=== PATIENT | female | born 1980 | race Caucasian/White ===

== ENCOUNTER 2016-09-17 | Outpatient (CLI) | payer MEDICAID | END 2016-09-17 10:34 | disposition critical access hospital (66) | DX: R68.84 Jaw pain (principal) | CPT/HCPCS: A0425; A0429 ==

== ENCOUNTER 2016-09-17 10:52 | Emergency (ER) | payer MEDICAID ==
[2016-09-17] MEDS ORDERED: PENICILLIN VK 250 MG TABLET PO STA (11:12)
[2016-09-17] MEDS ORDERED: PENICILLIN VK 250 MG TABLET PO ONE (11:27)
== END 2016-09-17 11:45 | disposition home or self-care (01) ==
DX: K04.7 Periapical abscess without sinus (principal); K05.10 Chronic gingivitis, plaque induced; Z87.440 Personal history of urinary (tract) infections; F17.200 Nicotine dependence, unspecified, uncomplicated
CPT/HCPCS: 81025; 99283; A9270

== ENCOUNTER 2017-10-04 13:25 | Emergency (ER) | payer MEDICAID ==
--- NOTE | 2017-10-04 13:54 | ED Physician Documentation ---
PD HPI HEENT - Stated complaint Stated Complaint: MOUTH PX/UNK WKS PREG - Chief complaint Chief Complaint: General - History obtained from History obtained from: Patient - History of Present Illness Timing - onset: How many days ago (several) Timing - duration: Days Timing - details: Gradual onset, Still present Location: Tooth (right lower tooth, with gum swelling.) Worsens: Swalllowing, Other (touching) Associated symptoms: Facial swelling. No: Fever, Swollen nodes, Cough Similar symptoms before: Diagnosis (dental infection same area several months ago, did not see dentist after) Recently seen: Not recently seen Review of Systems Constitutional: denies: Fever, Chills, Myalgias Nose: denies: Rhinorrhea / runny nose, Congestion Throat: denies: Sore throat GI: denies: Abdominal Pain, Nausea, Vomiting, Diarrhea : reports: Now EGA (about 38 weeks by dates, without OB care as yet. LMP January 04 or so.). 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: LEEP (Cervical surgery) - Present Medications Home Medications: Ambulatory Orders Medication Instructions Recorded Confirmed Ibuprofen [Motrin] 800 mg PO Q8H PRN #30 tablet 08/11/14 Cephalexin [Keflex] 500 mg PO QID #24 capsule 10/04/17 - Allergies Allergies/Adverse Reactions: Allergies Allergy/AdvReac Type Severity Reaction Status Date / Time azithromycin [From Zithromax] Allergy Severe Emesis Verified 10/04/17 13:36 - Social History Does the pt smoke?: Yes Smoking Status: Current some day smoker Does the pt drink ETOH?: No Does the pt have substance abuse?: Yes - Immunizations Immunizations are current?: Yes PD ED PE NORMAL - Vitals Vital signs reviewed: Yes - General General: Alert and oriented X 3, No acute distress, Well developed/nourished - HEENT HEENT: Pharynx benign. No: Dentition benign (tenderness right lower gum with focal swelling, but no fluctuance. Bedside U/S did not show significant fluid collection (just 2-3 mm) so no I&D. ) - Neck Neck: Supple, no meningeal sign, No adenopathy - Cardiac Cardiac: RRR, No murmur - Respiratory Respiratory: Clear bilaterally - Abdomen Abdomen: Soft, Non tender, Other (obviously gravid with fundus half way from umbilicus to xyphoid. No abd tenderness. ) - Female Female : Deferred - Rectal Rectal: Deferred - Back Back: No CVA TTP - Derm Derm: Normal color, Warm and dry - Extremities Extremities: No deformity, No tenderness to palpate, No edema - Neuro Neuro: Alert and oriented X 3, No motor deficit, Normal speech Results - Vitals Vitals: Oxygen O2 Source Room air - Labs Labs: Laboratory Tests 10/04/17 10/04/17 10/04/17 14:46 14:46 15:03 WBC RBC Hgb Hct MCV MCH MCHC RDW Plt Count MPV Neut # Lymph # Bacon # Eos # Baso # Absolute Nucleated RBC Nucleated RBC % Manual Slide Review WBC Morphology Platelet Estimate Platelet Morphology RBC Morph Micro Appear Sodium 135 Potassium 3.5 Chloride 105 Carbon Dioxide 21 Anion Gap 9.0 BUN 9 Creatinine 0.5 Estimated GFR (MDRD) 140 Glucose 108 H Calcium 8.2 L Total Bilirubin 0.2 AST 17 ALT 12 Alkaline Phosphatase 424 H Total Protein 6.6 L Albumin 2.8 L Globulin 3.8 Albumin/Globulin Ratio 0.7 L Lipase 24 Urine Color YELLOW Urine Clarity CLEAR Urine pH 6.0 Ur Specific [place] 1.015 Urine Protein NEGATIVE Urine Glucose (UA) NEGATIVE Urine Ketones NEGATIVE Urine Occult Blood NEGATIVE Urine Nitrite NEGATIVE Urine Bilirubin NEGATIVE Urine Urobilinogen 0.2 (NORMAL) Ur Leukocyte Esterase NEGATIVE Ur Microscopic Review NOT INDICATED Urine Culture Comments NOT INDICATED Urine Opiates Screen NEGATIVE Ur Oxycodone Screen NEGATIVE Urine Methadone Screen NEGATIVE Ur Propoxyphene Screen NEGATIVE Ur Barbiturates Screen NEGATIVE Ur Tricyclics Screen NEGATIVE Ur Phencyclidine Scrn NEGATIVE Ur Amphetamine Screen NEGATIVE U Methamphetamines Scrn NEGATIVE U Benzodiazepines Scrn NEGATIVE Urine Cocaine Screen NEGATIVE U Cannabinoids Screen POSITIVE H Hep Bs Antigen HIV 1&2 Ag/Ab, 4th Gen Blood Type Antibody Screen 10/04/17 10/04/17 10/04/17 15:03 15:03 15:03 WBC 21.1 H RBC 3.86 L Hgb 9.9 L Hct 30.4 L MCV 78.7 L MCH 25.5 L MCHC 32.5 RDW 15.5 H Plt Count 346 MPV 8.5 Neut # 15.9 H Lymph # 3.1 Bacon # 1.6 H Eos # 0.4 Baso # 0.1 Absolute Nucleated RBC 0.01 Nucleated RBC % 0.0 Manual Slide Review Indicated WBC Morphology NORMAL APPEARANCE Platelet Estimate NORMAL (130-450,000) Platelet Morphology 1+ GIANT PLATELETS RBC Morph Micro Appear NORMAL APPEARANCE Sodium Potassium Chloride Carbon Dioxide Anion Gap BUN Creatinine Estimated GFR (MDRD) Glucose Calcium Total Bilirubin AST ALT Alkaline Phosphatase Total Protein Albumin Globulin Albumin/Globulin Ratio Lipase Urine Color Urine Clarity Urine pH Ur Specific [place] Urine Protein Urine Glucose (UA) Urine Ketones Urine Occult Blood Urine Nitrite Urine Bilirubin Urine Urobilinogen Ur Leukocyte Esterase Ur Microscopic Review Urine Culture Comments Urine Opiates Screen Ur Oxycodone Screen Urine Methadone Screen Ur Propoxyphene Screen Ur Barbiturates Screen Ur Tricyclics Screen Ur Phencyclidine Scrn Ur Amphetamine Screen U Methamphetamines Scrn U Benzodiazepines Scrn Urine Cocaine Screen U Cannabinoids Screen Hep Bs Antigen NON-REACTIVE HIV 1&2 Ag/Ab, 4th Gen Blood Type O POSITIVE Antibody Screen NEGATIVE 10/04/17 15:03 WBC RBC Hgb Hct MCV MCH MCHC RDW Plt Count MPV Neut # Lymph # Bacon # Eos # Baso # Absolute Nucleated RBC Nucleated RBC % Manual Slide Review WBC Morphology Platelet Estimate Platelet Morphology RBC Morph Micro Appear Sodium Potassium Chloride Carbon Dioxide Anion Gap BUN Creatinine Estimated GFR (MDRD) Glucose Calcium Total Bilirubin AST ALT Alkaline Phosphatase Total Protein Albumin Globulin Albumin/Globulin Ratio Lipase Urine Color Urine Clarity Urine pH Ur Specific [place] Urine Protein Urine Glucose (UA) Urine Ketones Urine Occult Blood Urine Nitrite Urine Bilirubin Urine Urobilinogen Ur Leukocyte Esterase Ur Microscopic Review Urine Culture Comments Urine Opiates Screen Ur Oxycodone Screen Urine Methadone Screen Ur Propoxyphene Screen Ur Barbiturates Screen Ur Tricyclics Screen Ur Phencyclidine Scrn Ur Amphetamine Screen U Methamphetamines Scrn U Benzodiazepines Scrn Urine Cocaine Screen U Cannabinoids Screen Hep Bs Antigen HIV 1&2 Ag/Ab, 4th Gen NON-REACTIVE Blood Type Antibody Screen PD MEDICAL DECISION MAKING - ED course Complexity details: considered differential (Dental infection is now much difficulty. We will get her some antibiotics and some Tylenol. However the concern is she is estimated 38 weeks by dates and has not gotten OB care. She states she did not get any OB care with her prior to her children. She states she has 4 children in different custody is with her father's. She does get to see her 5-year-old now and takes care of a Thursday through Thursday while the father works. She states this has kept her too busy to be able to get an OB appointment. She is interested in getting some labs and ultrasound now. She is pleasant and cooperative but just has not bothered getting care.), d/w patient, d/w parts consultant (Dr. Santillan, and got OB labs to order from him, will also get US.), other (pt to L&D for eval c/w hopsital protocol on patients. ) Departure - Departure Disposition: 01 Home, Self Care Clinical Impression: Dental infection, No care in current in third trimester Qualifiers: Weeks of gestation: 38 weeks Qualified Code(s): Z3A.38 - 38 weeks gestation of Condition: Stable Record reviewed to determine appropriate education?: Yes Instructions: ED Abscess Dental, ED Preg Established Normal Sxs Follow-Up: Bong Santillan MD [Provider Admit Priv/Credential] - Prescriptions: Cephalexin [Keflex] 500 mg PO QID #24 capsule Comments: Tylenol 650 mg every 4-6 hours if needed for pain. No ibuprofen at this point in . Use cephalexin 4 times a day for the dental infection. Go to labor and delivery from here for further evaluation. Discharge Date/Time: 10/04/17 15:49
[2017-10-04] MEDS ORDERED: HYDROcod/ACETAM 5/325 MG TABLET PO STA (14:36)
[2017-10-04] MEDS ORDERED: cephALEXin 250 MG CAPSULE PO STA (14:36)
[2017-10-04 14:58] LABS: BILIRUBIN,URINE NEGATIVE (NEGATIVE); GLUCOSE, URINE (UA) NEGATIVE (NEGATIVE); KETONES,URINE (UA) NEGATIVE (NEGATIVE); LEUKOCYTE ESTERASE, URINE NEGATIVE (NEGATIVE); NITRITE,URINE NEGATIVE (NEGATIVE); OCCULT BLOOD,URINE NEGATIVE (NEGATIVE); PROTEIN,URINE NEGATIVE (NEGATIVE); UROBILINOGEN,URINE 0.2 (NORMAL) E.U./dL (NORMAL)
[2017-10-04 14:59] LABS: MUDS CUTOFF CONCENTRATIONS CUTOFF CONC BELOW:
[2017-10-04 15:00] LABS: CLARITY,URINE CLEAR (CLEAR)
[2017-10-04 15:18] LABS: BASOPHILS # (AUTO) 0.1 10^3/uL (0.0-0.1); BASOPHILS % (AUTO) 0.3 %; EOSINOPHILS # (AUTO) 0.4 10^3/uL (0.0-0.7); EOSINOPHILS % (AUTO) 1.8 %; HGB - HEMOGLOBIN 9.9 g/dL (12.0-16.0); LYMPHOCYTES # (AUTO) 3.1 10^3/uL (1.5-3.5); LYMPHOCYTES % (AUTO) 14.8 %; MEAN CORPUSCULAR HEMOGLOBIN 25.5 pg (27.0-31.0); MEAN CORPUSCULAR HGB CONC 32.5 g/dL (32.0-36.0); MEAN CORPUSCULAR VOLUME 78.7 fL (81.0-99.0); MEAN PLATELET VOLUME 8.5 fL (7.9-10.8); MONOCYTES # (AUTO) 1.6 10^3/uL (0.0-1.0); MONOCYTES % (AUTO) 7.5 %; NEUTROPHILS # (AUTO) 15.9 10^3/uL (1.5-6.6); NEUTROPHILS % (AUTO) 75.6 %; PLT - PLATELET COUNT 346 10^3/uL (130-450); RED BLOOD COUNT 3.86 10^6/uL (4.20-5.40); RED CELL DISTRIBUTION WIDTH 15.5 % (12.0-15.0); WHITE BLOOD COUNT 21.1 x10^3/uL (4.8-10.8)
[2017-10-04 15:22] LABS: AMPHETAMINE SCREEN,URINE NEGATIVE (NEGATIVE); BENZODIAZEPINES SCREEN, URINE NEGATIVE (NEGATIVE); COCAINE SCREEN URINE NEGATIVE (NEGATIVE); METHADONE SCREEN, URINE NEGATIVE (NEGATIVE); METHAMPHETAMINES SCREEN, URINE NEGATIVE (NEGATIVE); OPIATE SCREEN, URINE NEGATIVE (NEGATIVE); OXYCODONE SCREEN, URINE NEGATIVE (NEGATIVE); PROPOXYPHENE SCREEN, URINE NEGATIVE (NEGATIVE); TRICYCLIC ANTIDEPRESSANT,URINE NEGATIVE (NEGATIVE)
[2017-10-04 15:26] LABS: ALBUMIN 2.8 g/dL (3.2-5.5); ALBUMIN/GLOBULIN RATIO 0.7 (1.0-2.2); BILIRUBIN,TOTAL 0.2 mg/dL (0.2-1.0); CALCIUM 8.2 mg/dL (8.5-10.3); CREATININE 0.5 mg/dL (0.4-1.0); TOTAL PROTEIN 6.6 g/dL (6.7-8.2)
[2017-10-04 15:51] VITALS: BP 123/72
--- NOTE | 2017-10-04 17:51 | Ultrasound Report ---
EXAM: LIMITED OBSTETRICAL ULTRASOUND EXAM DATE: 10/04/2017 05:32 PM. CLINICAL HISTORY: Near term , no care. COMPARISON: None. TECHNIQUE: Real-time sonographic evaluation of the fetus performed by the slicing machine tender. Multiple repre sentative static images were saved for review. Additional transvaginal imaging to more accurately eugene luate cervical length/placental position/etc. DATING: Established EGA 38 weeks 5 days with ERICKSON 10/13/2017 by LMP. Established EGA by current ultrasound 37 weeks 3 days with ERICKSON 10/22/2017 GENERAL EVALUATION Sidhu . Cardiac activity: 132 bpm. movement: Visualized. Presentation: Cephalic. Placenta: Anterior without evidence of placenta previa. Amniotic fluid: Normal. STEPHEN 12 cm. MVP 5 cm. ANATOMY BPD 9.4 cm 38 weeks 0 days HC 33.17 m 37 weeks 5 days A. C. 34.4 cm 38 weeks 3 days FL 7.3 cm 37 weeks 3 days Estimated weight 3380 g Cord origin not visualized. Three-vessel cord is present. The following structures are visualized and have a normal appearance: Choroid plexus, lateral ventricles, midline falx, CSP, cisterna magna, cerebellum, nuchal fold, nasal bone, coronal face, nose lips, open hands. Cardiac situs, 4 chamber heart, left and right ventricula r outflow tracts, stomach and situs. Diaphragm, kidneys, bladder, cord insertion. The following structures are not well evaluated due to advanced age: Spine, upper and lower extremities. Leg foot relationships. MATERNAL STRUCTURES Uterus and cervix are not well evaluated. Bilateral adnexa appear unremarkable. IMPRESSION: 1. Sidhu live intrauterine with gestational age 37 weeks 3 days based on current ultras ound. 2. Limited evaluation of anatomy due to advanced age. [facility] Referring Provider Line: [phone] SITE ID: [id number]
[2017-10-04 17:57] LABS: PLATELET ESTIMATE, MANUAL NORMAL (130-450,000) (NORMAL); PLATELET MORPHOLOGY 1+ GIANT PLATELETS (NORMAL)
[2017-10-04 17:58] LABS: RBC MORPHOLOGY (MULTIPLE) NORMAL APPEARANCE (NORMAL)
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
[2017-10-06 08:46] LABS: HEPATITIS B SURFACE ANTIGEN NON-REACTIVE (NON-REACTIVE)
[2017-10-06 13:52] LABS: HIV AG/AB 4TH GEN NON-REACTIVE (NON-REACTIVE)
== END 2017-10-04 15:49 | disposition home or self-care (01) ==
LOC: ED 13:25
DX: O26.893 Other specified pregnancy related conditions, third trimester (principal); K04.7 Periapical abscess without sinus; O09.33 Supervision of pregnancy with insufficient antenatal care, third trimester; O99.333 Smoking (tobacco) complicating pregnancy, third trimester; Z3A.38 38 weeks gestation of pregnancy
CPT/HCPCS: 36415; 76805; 80053; 80306; 81003; 83690; 85025; 86765; 86780; 86850; 86900; 86901; 87340; 87389; 99283; A9270; 81001; 87086

== ENCOUNTER 2017-10-04 15:41 | Outpatient (CLI) | payer MEDICAID ==
[2017-10-04 17:51] VITALS: BP 119/73
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
== END 2017-10-04 18:58 | disposition home or self-care (01) ==
LOC: WFO 15:41 → FBP 15:46 → WFO 18:58
PROVIDERS: ATTEND Obstetrics & Gynecology
DX: O09.33 Supervision of pregnancy with insufficient antenatal care, third trimester (principal); O09.523 Supervision of elderly multigravida, third trimester; O09.73 Supervision of high risk pregnancy due to social problems, third trimester; O99.333 Smoking (tobacco) complicating pregnancy, third trimester; F17.210 Nicotine dependence, cigarettes, uncomplicated; O99.323 Drug use complicating pregnancy, third trimester; F12.90 Cannabis use, unspecified, uncomplicated; O99.613 Diseases of the digestive system complicating pregnancy, third trimester; K02.9 Dental caries, unspecified; O99.013 Anemia complicating pregnancy, third trimester; D64.9 Anemia, unspecified; Z3A.39 39 weeks gestation of pregnancy; Z59.6 Low income
CPT/HCPCS: 59025; 87797; 99212

== ENCOUNTER 2017-10-09 11:42 | Inpatient (IN) | payer MEDICAID ==
[2017-10-09 12:21] LABS: MUDS CUTOFF CONCENTRATIONS CUTOFF CONC BELOW:
[2017-10-09 12:27] LABS: RUPTURE OF MEMBRANES PLUS POSITIVE (NEGATIVE)
[2017-10-09 12:37] LABS: AMPHETAMINE SCREEN,URINE NEGATIVE (NEGATIVE); BENZODIAZEPINES SCREEN, URINE NEGATIVE (NEGATIVE); COCAINE SCREEN URINE NEGATIVE (NEGATIVE); METHADONE SCREEN, URINE NEGATIVE (NEGATIVE); METHAMPHETAMINES SCREEN, URINE NEGATIVE (NEGATIVE); OPIATE SCREEN, URINE NEGATIVE (NEGATIVE); OXYCODONE SCREEN, URINE NEGATIVE (NEGATIVE); PROPOXYPHENE SCREEN, URINE NEGATIVE (NEGATIVE); TRICYCLIC ANTIDEPRESSANT,URINE NEGATIVE (NEGATIVE)
[2017-10-09] MEDS ORDERED: fentaNYL 100 MCG/2 ML VIAL IVP PRN (14:01)
[2017-10-09] MEDS ORDERED: SODIUM CHLORIDE FLUSH 0.9% 10 ML SYRINGE IVP PRN (14:01)
[2017-10-09] MEDS ORDERED: ONDANSETRON 4 MG/2 ML VIAL IVP PRN ×2 (14:01→20:45)
[2017-10-09] MEDS: LACTATED RINGERS 1,000 ML IV SCH ×2 (15:00→19:34)
[2017-10-09 15:30] LABS: BASOPHILS # (AUTO) 0.1 10^3/uL (0.0-0.1); BASOPHILS % (AUTO) 0.3 %; EOSINOPHILS # (AUTO) 0.4 10^3/uL (0.0-0.7); EOSINOPHILS % (AUTO) 2.5 %; HGB - HEMOGLOBIN 10.4 g/dL (12.0-16.0); LYMPHOCYTES # (AUTO) 3.2 10^3/uL (1.5-3.5); LYMPHOCYTES % (AUTO) 18.9 %; MEAN CORPUSCULAR HEMOGLOBIN 25.7 pg (27.0-31.0); MEAN CORPUSCULAR HGB CONC 32.2 g/dL (32.0-36.0); MEAN CORPUSCULAR VOLUME 79.7 fL (81.0-99.0); MEAN PLATELET VOLUME 9.1 fL (7.9-10.8); MONOCYTES % (AUTO) 5.8 %; NEUTROPHILS # (AUTO) 12.3 10^3/uL (1.5-6.6); NEUTROPHILS % (AUTO) 72.5 %; PLT - PLATELET COUNT 365 10^3/uL (130-450); RED BLOOD COUNT 4.04 10^6/uL (4.20-5.40); RED CELL DISTRIBUTION WIDTH 15.9 % (12.0-15.0)
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
[2017-10-09] MEDS ORDERED: SODIUM CHLORIDE FLUSH 0.9% 10 ML SYRINGE IVP SCH (17:00)
[2017-10-09] MEDS ORDERED: ceFAZolin 1 GM in SODIUM CHLORIDE 0.9% MINIBAG 100 ML IV SCH ×2 (17:00→18:00)
[2017-10-09] MEDS ORDERED: OXYTOCIN/SODIUM CHLORIDE 500 ML IV SCH (17:00)
[2017-10-09] MEDS ORDERED: fent/BUPIV 2 MCG/0.125% 250 ML EP ONE (20:23)
[2017-10-09] MEDS ORDERED: NALOXONE 0.4 MG/ML VIAL IVP PRN (20:45)
[2017-10-09] MEDS ORDERED: METOCLOPRAMIDE 10 MG/2 ML VIAL IVP PRN (20:45)
[2017-10-09] MEDS ORDERED: ePHEDrine 50 MG/ML VIAL IVP PRN (20:45)
[2017-10-09] MEDS ORDERED: NALBUPHINE 20 MG/ML AMP IVP PRN (20:45)
[2017-10-09] MEDS ORDERED: diphenhydrAMINE INJ 50 MG/ML VIAL IVP PRN (20:45)
[2017-10-09] MEDS ORDERED: fent/BUPIV 2 MCG/0.125% 250 ML EP PRN (20:46)
[2017-10-09] MEDS ORDERED: LACTATED RINGERS 500 ML IV ONE (20:46)
[2017-10-09] MEDS ORDERED: CARBOPROST TROMETHAMINE 250 MCG/ML AMP IM ONE (23:16)
[2017-10-09] MEDS ORDERED: METHYLERGONOVINE 0.2 MG/ML AMP ONE (23:18)
[2017-10-09] MEDS ORDERED: HYDROCORTISONE/PRAMOXINE 10 GM PR PRN (23:31)
[2017-10-09] MEDS ORDERED: OXYTOCIN/SODIUM CHLORIDE 250 ML IV ONE (23:31)
[2017-10-09] MEDS ORDERED: WITCH HAZEL/GLYCERIN 1 EACH MED..PAD TOP PRN (23:31)
[2017-10-09] MEDS ORDERED: HYDROCORTISONE 1% CREAM 28 GM TUBE PR PRN (23:31)
[2017-10-09] MEDS ORDERED: LACTATED RINGERS 1,000 ML IV SCH (23:45)
--- NOTE | 2017-10-10 00:24 | DELIVERY NOTE ---
Delivery Note - Labor Labor: positive: Induced by oxytocin - Delivery Method Delivery Method: positive: Spontaneous vaginal delivery - Presentation Presentation: positive: Vertex, OA - occiput anterior - Nuchal Cord Nuchal Cord: positive: None - Anesthetic Anesthetic Type: - Amniotic Fluid Description Amniotic Fluid Description: positive: Clear - Episiotomy Type Episiotomy Type: positive: None - Laceration Laceration: positive: None - Delivery Outcome Delivery Outcome: positive: Livebirth (Apgars) - : positive: Placed in direct skin contact with mother, Bulb syringe sex: positive: Female - Cord Cord: positive: 3 vessels - Placenta Placenta: positive: Intact, Spontaneous - Estimated Blood Loss Estimated Blood Loss (in cc): 150 - Post Delivery Events Post Delivery Events: positive: No post delivery events - Delivery Comments (Free Text/Narrative) Delivery Comments (Free Text/Narrative): Baby weigh 7lb 4oz. very short second stage.
[2017-10-10] MEDS: IBUPROFEN 800 MG TABLET PO SCH ×4 (02:04→20:42)
[2017-10-10] MEDS: ACETAMINOPHEN 325 MG TABLET PO PRN ×2 (04:50→09:04)
--- NOTE | 2017-10-10 11:22 | PROVIDER PROGRESS NOTE ---
Subjective - Prog Note Date Prog Note Date: 10/10/17 Prog Note Time: 11:20 - Subjective Pt reports feeling: Improved (Pt voiding notes cramping with breast feeding. bleeding resolving notes paoin 01/03. when questioned states he rpain contron is good. declines narcotics.) Objective - Vital Signs/Intake & Output Reviewed Vital Signs: Yes Vital Signs: Vital Signs x48h Temp Pulse Resp BP Pulse Ox 10/10/17 09:00 36.3 C L 82 18 110/72 100 10/10/17 03:35 37.1 C 85 18 108/64 100 Intake & Output: Intake & Output 10/07/17 10/08/17 10/09/17 10/10/17 23:59 23:59 23:59 23:59 Intake Total 518.323 9872 Output Total 300 750 Balance 398.200 250 - Objective General Appearance: positive: No acute distress, Alert Respiratory: positive: Chest non-tender, No respiratory distress, Breath sounds nml Cardiovascular: positive: Regular rate & rhythm, No murmur, No gallop Abdomen: positive: Non-tender, No organomegaly, Nml bowel sounds, No distention , Mass (U-2). negative: Tenderness Back: positive: CVA tenderness (R), CVA tenderness (L) Extremities: negative: Calf tenderness, Dorothea's sign/cords Neurologic/Psychiatric: positive: Oriented x3 - Lab Results Fish Bones: 10/09/17 15:00 Other Labs: Lab Results x24hrs 10/09/17 10/09/17 10/09/17 Range/Units 15:00 12:10 11:55 WBC 17.0 H (4.8-10.8) x10^3/uL RBC 4.04 L (4.20-5.40) 10^6/uL Hgb 10.4 L (12.0-16.0) g/dL Hct 32.2 L (37.0-47.0) % MCV 79.7 L (81.0-99.0) fL MCH 25.7 L (27.0-31.0) pg MCHC 32.2 (32.0-36.0) g/dL RDW 15.9 H (12.0-15.0) % Plt Count 365 (130-450) 10^3/uL MPV 9.1 (7.9-10.8) fL Neut # 12.3 H (1.5-6.6) 10^3/uL Lymph # 3.2 (1.5-3.5) 10^3/uL [place] # 1.0 (0.0-1.0) 10^3/uL Eos # 0.4 (0.0-0.7) 10^3/uL Baso # 0.1 (0.0-0.1) 10^3/uL Absolute Nucleated RBC 0.00 x10^3/uL Nucleated RBC % 0.0 /100WBC Membranes Rupture POSITIVE A (NEGATIVE) Urine Opiates Screen NEGATIVE (NEGATIVE) Ur Oxycodone Screen NEGATIVE (NEGATIVE) Urine Methadone Screen NEGATIVE (NEGATIVE) Ur Propoxyphene Screen NEGATIVE (NEGATIVE) Ur Barbiturates Screen NEGATIVE (NEGATIVE) Ur Tricyclics Screen NEGATIVE (NEGATIVE) Ur Phencyclidine Scrn NEGATIVE (NEGATIVE) Ur Amphetamine Screen NEGATIVE (NEGATIVE) U Methamphetamines Scrn NEGATIVE (NEGATIVE) U Benzodiazepines Scrn NEGATIVE (NEGATIVE) Urine Cocaine Screen NEGATIVE (NEGATIVE) U Cannabinoids Screen POSITIVE H (NEGATIVE) Assessment/Plan - Problem List (1) (spontaneous vaginal delivery) Impression: Pt is progressing well. Baby is on hold for CPS. Anticipate Discharge in AM
[2017-10-10] MEDS: ACETAMINOPHEN 500 MG TABLET PO PRN (16:15)
[2017-10-10] MEDS: oxyCODONE 5 MG TABLET PO PRN ×2 (16:16→21:45)
[2017-10-10] MEDS ORDERED: DOCUSATE SODIUM 100 MG CAPSULE PO SCH (21:00)
[2017-10-11] MEDS: ACETAMINOPHEN 500 MG TABLET PO PRN ×2 (00:34→08:58)
[2017-10-11] MEDS: IBUPROFEN 800 MG TABLET PO SCH ×2 (02:43→13:34)
--- NOTE | 2017-10-11 07:45 | PROVIDER PROGRESS NOTE ---
Subjective - Prog Note Date Prog Note Date: 10/11/17 Prog Note Time: 07:43 - Subjective Pt reports feeling: Improved (Pain 3/10. pt otes good pain control. Pt desires Tubal ligation. Baby is up for adoption. discussed Post blues/ depression.) Objective - Vital Signs/Intake & Output Reviewed Vital Signs: Yes Vital Signs: Vital Signs x48h Temp Pulse Resp BP Pulse Ox 10/11/17 00:30 36.5 C 81 18 113/66 98 Intake & Output: Intake & Output 10/08/17 10/09/17 10/10/17 10/11/17 23:59 23:59 23:59 23:59 Intake Total 952.156 3072 Output Total 300 750 Balance 398.200 250 - Objective General Appearance: positive: No acute distress, Alert (Pt lust awakened.) Abdomen: positive: Non-tender, Mass (U-2) Extremities: negative: Calf tenderness, Dorothea's sign/cords - Lab Results Fish Bones: 10/09/17 15:00 Assessment/Plan - Problem List (1) (spontaneous vaginal delivery) Impression: Pt is progressing well medically. milk coming in. locia decreasing. Pt desires tubal ligation. Motrin 800 for pain Discharge adn room in.
[2017-10-11] MEDS: NICOTINE 14 MG PATCH TOP SCH ×2 (10:08→13:35)
[2017-10-11 13:16] VITALS: BP 122/69
--- NOTE | 2017-10-11 13:38 | Labor Flowsheet ---
Labor Flowsheet Datetime Report Generated by CPN: 10/11/2017 13:37 Datetime: 10/10/2017 08:22 VITAL SIGNS NBP Sys/Marie/Mean (mmHg): 110 : 72 : 82 Pulse: 82 Datetime: 10/10/2017 03:35 SpO2 (%): 100 Datetime: 10/09/2017 23:25 MEDICATIONS Pitocin (milliunits): Pitocin begun @ 50ml/hr after spont del of placenta Datetime: 10/09/2017 23:24 Stage 2 Comments: Placenta spont expelled Datetime: 10/09/2017 23:15 Stage of : Recovery Datetime: 10/09/2017 23:14 Comments: , female Datetime: 10/09/2017 23:12 STAGE 2 Pushing: Coached on Pushing; Urge to Push Pushing Position: Pushing with Contractions Pushing Progress: Descent with Pushing Datetime: 10/09/2017 23:10 ASSESSMENT A Monitor Mode: External US FHR Baseline Rate : 140 FHR Baseline Changes: No Baseline Change Variability: Moderate 6-25 bpm Accelerations: occas Decelerations: Variable LaborFlag: Labor Datetime: 10/09/2017 23:08 Exam by: Dr Giem Datetime: 10/09/2017 23:05 Actions for Decelerations: Sterile Vaginal Exam Datetime: 10/09/2017 23:03 Provider Reviewed Strip: No COMMUNICATION Communication: Provider at Bedside Provider Notified (Name): Giem Notification Reason: Status Update Communication Comments: Here for delivery Datetime: 10/09/2017 23:00 UTERINE ACTIVITY Monitor Mode: External Monitor Interventions for UA: [place] Adjusted Frequency (min): 2-3 Quality: Moderate Duration (sec): 55-90 Pattern: Normal: <= 5 Contractions in 10 Minutes Resting Tone (Palpate): Relaxed Pitocin Checklist: At Least 1 Acceleration of 15 bpm x 15 Seconds in 30 Minutes or Adequate Variabi lity; No More than 1 Late Deceleration Occurred in Past 30 Minutes; No More than 2 Variable Decelerat ions > 60 Seconds in Duration and decreasing >60 bpm in 30 minutes; No More than 5 Uterine Contractio ns in 10 Minutes for any 20 Minute Interval; Uterus Palpates Soft between Contractions Category: Category II TEACHING Instructional Method: Verbal; Patient Instructed; Verbalized Understanding Plan of Care: Plan of Care Discussed Labor/Induction: Pushing Methods Datetime: 10/09/2017 22:57 I/O Interventions: [place] Discontinued Patient Care Comments: 200ml urine in [place] Datetime: 10/09/2017 22:55 VAGINAL EXAM Dilatation (cm): 8.0 Effacement (%): 100 Station: 0 Datetime: 10/09/2017 22:38 Vaginal Bleeding: None Cervix, Position: Midposition Datetime: 10/09/2017 22:30 Respirations: 18 PAIN Pain Scale: 0 Pain Presence: None/Denies Pain Type: N/A Pain Goal: 4 Pain Relief Measures: Epidural Given Pain Coping: Talking Through Contractions Datetime: 10/09/2017 21:40 ANESTHESIA Anesthesia Plans: Epidural Anesthesia Interview: E Anesthesia Level Check: T6- Xyphoid Datetime: 10/09/2017 21:35 Temperature (C): 37.2 Temperature Route: Oral Datetime: 10/09/2017 21:30 Patient Position/Activity: Left Tilt Datetime: 10/09/2017 21:26 Cervix, Consistency: Moderate Datetime: 10/09/2017 20:47 MATERNAL ASSESSMENT Level of Consciousness: Fully Conscious DTR's/Clonus: DTRs 1+; No Clonus Headache: Denies Breath Sounds, Left: Clear and Equal Breath Sounds, Right: Clear and Equal Nausea/Vomiting: Denies RUQ Epigastric Pain: Denies Maternal Comments: Full ROM prior to epidural Datetime: 10/09/2017 20:10 Pain Location: Abdomen; Left Groin Datetime: 10/09/2017 20:07 Epidural Procedure: Loading Dose Datetime: 10/09/2017 19:50 PATIENT CARE IV/Blood Work: New IV Bag Hung; IV Bag Number @ 2 Datetime: 10/09/2017 19:45 PROCEDURE TIME OUT Procedure Verify: Correct Patient Identity; Correct Side and Site are Marked; Accurate Procedure Co nsent Form; Agreement on Procedure to be Done; Correct Patient Position; Relevant Images and Results are Properly Labeled and Displayed; Safety Precautions Based on Patient History or Medication Use Epidural Positioning: Sitting Anesthesia Comments: Time out, consent signed Datetime: 10/09/2017 19:30 Unit Routine: Unit Personnel; Monitoring; Safety/Fall Risk Prevention; Routine Time Outs; Med ications Pain Management: Epidural; Pain Scale/Goals; Comfort Measures Datetime: 10/09/2017 19:01 Membrane Status: Ruptured Oxygen Method: Room Air Datetime: 10/09/2017 17:30 Comfort Measures: patient napping Datetime: 10/09/2017 14:30 Membranes Ruptured Date/Time: 10/08/2017 14:00 (Annotations: patient thinks she ruptured 10/08/17 ab out 1400) Membranes Rupture Method: Spontaneous Amniotic Fluid Color: Clear Amniotic Fluid Amount: Small Amniotic Fluid Odor: Normal ROM Test Kit: Positive Presentation 'A': Cephalic Medications: Antibiotics; Pitocin PTL/PROM: Expected Outcomes Teaching Comments: patient is aware that due to no care, drug use and past history to expe ct CPS to be involved. Patient states that she expected that. and her plan was to placed baby up for adoption. She has not contacted any adoption agencies.
--- NOTE | 2017-10-12 13:48 | DISCHARGE SUMMARY ---
Physician: Bong Maravilla MD DATE OF ADMISSION: 10/09/2017 DATE OF DISCHARGE: 10/11/2017 PROCEDURES 1. Epidural. 2. Intravenous antibiotics. 3. Assisted vaginal delivery. PRESENTING HISTORY: The patient is a 37-year-old. She is 9, para 4, SAB 2, TAB 2 female, whose last menstrual period was 24 March, giving her EDC of 11 October 2017. This was confirmed with ultrasound on 10/04/2017. The patient presents without any care. She presents with probable rupture of membranes at 1330 the day previous. She did not start contractions until 0430 in the morning of admission. She was admitted and prepared for delivery. LABS: White count showed a hemoglobin 9.9, platelets were 346. Her random blood sugar was 108. The patient had a U-tox, which was positive for cannabinoids. The patient's blood was noted to be O positive, antibody screen negative. HOSPITAL COURSE: The patient was admitted. She was allowed to rest. An epidural was placed for labor analgesia. She was initiated on Pitocin as she was not having regular contractions. The patient reached complete and, following a very short second stage, delivered a live female infant with Apgars 8 and 9, weighing 7 pounds 4 ounces. Her course has been unremarkable. The patient does not at this point have any children at home as they have all been put up for adoption or foster care. CPS has been contacted and are currently probably going to take the baby away. Patient is being discharged to room in, in that the arrangements need be made for at this point. We have discussed the option of tubal ligation, at this point she would like to pursue this. We will obtain paperwork for her to sign, but will have to postpone any tubal ligation until at least 30 days after signature. The patient is being discharged with Motrin for pain control. We will have the patient come back in 1 week at which time we will start contraception until a tubal ligation can be performed. TD: 10/12/2017 07:12
== END 2017-10-11 13:30 | disposition home or self-care (01) | DRG 775 ==
LOC: WFO 11:42 → FBP 11:44 → WFO 14:01 → FBP 14:02
PROVIDERS: ADMIT Obstetrics & Gynecology; ATTEND Obstetrics & Gynecology
PROC: 3E033VJ Introduction of Other Hormone into Peripheral Vein, Percutaneous Approach (ICD-10-PCS; 2017-10-09)
PROC: 10E0XZZ Delivery of Products of Conception, External Approach (ICD-10-PCS; principal; 2017-10-10)
DX: O99.333 Smoking (tobacco) complicating pregnancy, third trimester (principal); Z37.0 Single live birth; F17.200 Nicotine dependence, unspecified, uncomplicated; O99.323 Drug use complicating pregnancy, third trimester; F12.90 Cannabis use, unspecified, uncomplicated; O62.3 Precipitate labor; Z3A.00 Weeks of gestation of pregnancy not specified
CPT/HCPCS: 80306; 84112; 85025; 99213

== ENCOUNTER 2017-10-12 08:57 | Outpatient (CLI) | payer MEDICAID ==
--- NOTE | 2017-10-12 10:26 | Labor Flowsheet ---
Labor Flowsheet Datetime Report Generated by CPN: 10/12/2017 10:26 Datetime: 10/10/2017 08:22 VITAL SIGNS NBP Sys/Marie/Mean (mmHg): 110 : 72 : 82 Pulse: 82 Datetime: 10/10/2017 03:35 SpO2 (%): 100 Datetime: 10/09/2017 23:25 MEDICATIONS Pitocin (milliunits): Pitocin begun @ 50ml/hr after spont del of placenta Datetime: 10/09/2017 23:24 Stage 2 Comments: Placenta spont expelled Datetime: 10/09/2017 23:15 Stage of : Recovery Datetime: 10/09/2017 23:14 Comments: , female Datetime: 10/09/2017 23:12 STAGE 2 Pushing: Coached on Pushing; Urge to Push Pushing Position: Pushing with Contractions Pushing Progress: Descent with Pushing Datetime: 10/09/2017 23:10 ASSESSMENT A Monitor Mode: External US FHR Baseline Rate : 140 FHR Baseline Changes: No Baseline Change Variability: Moderate 6-25 bpm Accelerations: occas Decelerations: Variable LaborFlag: Labor Datetime: 10/09/2017 23:08 Exam by: Dr Giem Datetime: 10/09/2017 23:05 Actions for Decelerations: Sterile Vaginal Exam Datetime: 10/09/2017 23:03 Provider Reviewed Strip: No COMMUNICATION Communication: Provider at Bedside Provider Notified (Name): Giem Notification Reason: Status Update Communication Comments: Here for delivery Datetime: 10/09/2017 23:00 UTERINE ACTIVITY Monitor Mode: External Monitor Interventions for UA: [place] Adjusted Frequency (min): 2-3 Quality: Moderate Duration (sec): 55-90 Pattern: Normal: <= 5 Contractions in 10 Minutes Resting Tone (Palpate): Relaxed Pitocin Checklist: At Least 1 Acceleration of 15 bpm x 15 Seconds in 30 Minutes or Adequate Variabi lity; No More than 1 Late Deceleration Occurred in Past 30 Minutes; No More than 2 Variable Decelerat ions > 60 Seconds in Duration and decreasing >60 bpm in 30 minutes; No More than 5 Uterine Contractio ns in 10 Minutes for any 20 Minute Interval; Uterus Palpates Soft between Contractions Category: Category II TEACHING Instructional Method: Verbal; Patient Instructed; Verbalized Understanding Plan of Care: Plan of Care Discussed Labor/Induction: Pushing Methods Datetime: 10/09/2017 22:57 I/O Interventions: [place] Discontinued Patient Care Comments: 200ml urine in [place] Datetime: 10/09/2017 22:55 VAGINAL EXAM Dilatation (cm): 8.0 Effacement (%): 100 Station: 0 Datetime: 10/09/2017 22:38 Vaginal Bleeding: None Cervix, Position: Midposition Datetime: 10/09/2017 22:30 Respirations: 18 PAIN Pain Scale: 0 Pain Presence: None/Denies Pain Type: N/A Pain Goal: 4 Pain Relief Measures: Epidural Given Pain Coping: Talking Through Contractions Datetime: 10/09/2017 21:40 ANESTHESIA Anesthesia Plans: Epidural Anesthesia Interview: E Anesthesia Level Check: T6- Xyphoid Datetime: 10/09/2017 21:35 Temperature (C): 37.2 Temperature Route: Oral Datetime: 10/09/2017 21:30 Patient Position/Activity: Left Tilt Datetime: 10/09/2017 21:26 Cervix, Consistency: Moderate Datetime: 10/09/2017 20:47 MATERNAL ASSESSMENT Level of Consciousness: Fully Conscious DTR's/Clonus: DTRs 1+; No Clonus Headache: Denies Breath Sounds, Left: Clear and Equal Breath Sounds, Right: Clear and Equal Nausea/Vomiting: Denies RUQ Epigastric Pain: Denies Maternal Comments: Full ROM prior to epidural Datetime: 10/09/2017 20:10 Pain Location: Abdomen; Left Groin Datetime: 10/09/2017 20:07 Epidural Procedure: Loading Dose Datetime: 10/09/2017 19:50 PATIENT CARE IV/Blood Work: New IV Bag Hung; IV Bag Number @ 2 Datetime: 10/09/2017 19:45 PROCEDURE TIME OUT Procedure Verify: Correct Patient Identity; Correct Side and Site are Marked; Accurate Procedure Co nsent Form; Agreement on Procedure to be Done; Correct Patient Position; Relevant Images and Results are Properly Labeled and Displayed; Safety Precautions Based on Patient History or Medication Use Epidural Positioning: Sitting Anesthesia Comments: Time out, consent signed Datetime: 10/09/2017 19:30 Unit Routine: Unit Personnel; Monitoring; Safety/Fall Risk Prevention; Routine Time Outs; Med ications Pain Management: Epidural; Pain Scale/Goals; Comfort Measures Datetime: 10/09/2017 19:01 Membrane Status: Ruptured Oxygen Method: Room Air Datetime: 10/09/2017 17:30 Comfort Measures: patient napping Datetime: 10/09/2017 14:30 Membranes Ruptured Date/Time: 10/08/2017 14:00 (Annotations: patient thinks she ruptured 10/08/17 ab out 1400) Membranes Rupture Method: Spontaneous Amniotic Fluid Color: Clear Amniotic Fluid Amount: Small Amniotic Fluid Odor: Normal ROM Test Kit: Positive Presentation 'A': Cephalic Medications: Antibiotics; Pitocin PTL/PROM: Expected Outcomes Teaching Comments: patient is aware that due to no care, drug use and past history to expe ct CPS to be involved. Patient states that she expected that. and her plan was to placed baby up for adoption. She has not contacted any adoption agencies.
== END 2017-10-12 10:24 | disposition home or self-care (01) ==
LOC: WFO 08:57 → FBP 08:58 → WFO 10:24
PROVIDERS: ATTEND Obstetrics & Gynecology
DX: Z30.013 Encounter for initial prescription of injectable contraceptive (principal)
CPT/HCPCS: 96372; J1050

== ENCOUNTER 2019-01-29 04:26 | Emergency (ER) | payer MEDICAID ==
[2019-01-29 04:31] VITALS: BP 140/88
[2019-01-29] MEDS ORDERED: HYDROcod/ACETAM 5/325 MG TABLET PO STA (04:40)
--- NOTE | 2019-01-29 04:40 | ED Physician Documentation ---
PD HPI HEENT - Stated complaint Stated Complaint: TOOTH PX - Chief complaint Chief Complaint: Heent - History obtained from History obtained from: Patient - History of Present Illness Timing - onset: Enter time (1300), Yesterday Timing - duration: Days (1) Timing - details: Abrupt onset, Still present Location: Tooth Improves: Nothing Worsens: Everything Associated symptoms: Facial swelling Similar symptoms before: Diagnosis (bad tooth) Recently seen: Not recently seen - Additional information Additional information: 38-year old female has had a problem with pain in her left lower jaw for the past 2 weeks. Yesterday at about 1 PM in the afternoon her pain became excruciating and she has swelling of the left side of her face. She comes into the emergency department this morning crying in pain clutching the left side of her face. Review of Systems Constitutional: denies: Fever Eyes: denies: Decreased vision Ears: denies: Ear pain Nose: reports: Congestion Throat: reports: Dental pain / toothache Cardiac: denies: Chest pain / pressure Respiratory: denies: Dyspnea GI: denies: Vomiting PD PAST MEDICAL HISTORY - Past Medical History Cardiovascular: None Respiratory: None Endocrine/Autoimmune: None GI: None PULPER OPERATOR: None : Chronic bladder infection HEENT: None Psych: None Musculoskeletal: None Derm: None - Past Surgical History Past Surgical History: Yes /PULPER OPERATOR: LEEP (Cervical surgery) - Present Medications Home Medications: Ambulatory Orders Medication Instructions Recorded Confirmed Ibuprofen [Motrin] 800 mg PO Q8H PRN #30 tablet 08/11/14 Amoxicillin 875 mg PO BID #14 tablet 01/29/19 Hydrocodone/Acetaminophen 1 - 2 each PO Q6H PRN #14 tablet 01/29/19 [Hydrocodon-Acetaminophen 5-325] - Allergies Allergies/Adverse Reactions: Allergies Allergy/AdvReac Type Severity Reaction Status Date / Time azithromycin [From Zithromax] Allergy Severe Emesis Verified 01/29/19 04:31 - Social History Does the pt smoke?: Yes Smoking Status: Current every day smoker Does the pt drink ETOH?: No Does the pt have substance abuse?: Yes - Immunizations Immunizations are current?: Yes - POLST Patient has POLST: No PD ED PE NORMAL - General General: Alert and oriented X 3, Well developed/nourished, Other (Crying in pain clutching the side of her face) - HEENT HEENT: Atraumatic, PERRL, EOMI, Other (There are 2 lower rear molars that are broken at the base. There is swelling to the gingival mucosa and tenderness. 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 She is administered hydrocodone orally and amoxicillin 750 mg. Departure - Departure Disposition: 01 Home, Self Care Clinical Impression: Dental infection Condition: Stable Instructions: ED Abscess Tooth Follow-Up: [facility] [Provider Group] Prescriptions: Amoxicillin 875 mg PO BID #14 tablet Hydrocodone/Acetaminophen [Hydrocodon-Acetaminophen 5-325] 1 - 2 each PO Q6H PRN #14 tablet PRN Reason: pain
[2019-01-29] MEDS ORDERED: AMOXICILLIN 250 MG CAPSULE PO STA (04:41)
== END 2019-01-29 04:50 | disposition home or self-care (01) ==
LOC: ED 04:26
DX: K04.7 Periapical abscess without sinus (principal); F17.200 Nicotine dependence, unspecified, uncomplicated
CPT/HCPCS: 99283; A9270

== ENCOUNTER 2020-06-01 09:44 | Emergency (ER) | payer MEDICAID ==
--- NOTE | 2020-06-01 10:03 | ED Physician Documentation ---
PD HPI CHEST PAIN - Stated complaint Stated Complaint: CHEST DISCOMFORT - History obtained from History obtained from: Patient - History of Present Illness Timing - onset: How many days ago (2) Timing - onset during: Light activity Timing - duration: Hours (had anterior chest pain lasting just few hours 2 days ago, then resolved and has not returned. Her friend suggested she get checked out, since , and also to initiate care.) Timing - details: Abrupt onset, Now resolved, Waxing and waning Quality: Sharp, Pain Location: Substernal Associated symptoms: No: Shortness of air, Nausea, Feeling faint / dizzy, General Weakness, Palpitations, Cough Similar symptoms before: Has not had sx before Recently seen: Not recently seen (she is estimated 26 weeks and not gotten care yet.) Review of Systems Constitutional: denies: Fever, Chills Nose: denies: Rhinorrhea / runny nose, Congestion Throat: denies: Sore throat Respiratory: denies: Cough GI: denies: Abdominal Pain, Nausea, Vomiting, Diarrhea : reports: Now EGA (26 weeks). 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 : Chronic bladder infection HEENT: None Psych: None Musculoskeletal: None Derm: None - Past Surgical History Past Surgical History: Yes /HOT MIX OPERATOR: LEEP (Cervical surgery) - Present Medications Home Medications: Ambulatory Orders Medication Instructions Recorded Confirmed Ibuprofen [Motrin] 800 mg PO Q8H PRN #30 tablet 08/11/14 Amoxicillin 875 mg PO BID #14 tablet 01/29/19 Hydrocodone/Acetaminophen 1 - 2 each PO Q6H PRN #14 tablet 01/29/19 [Hydrocodon-Acetaminophen 5-325] - Allergies Allergies/Adverse Reactions: Allergies Allergy/AdvReac Type Severity Reaction Status Date / Time azithromycin [From Zithromax] Allergy Severe Emesis Verified 01/29/19 04:31 - Living Situation Living Situation: reports: With family (has 5 children aged 3 to 13.) Living Arrangement: reports: At home - Social History Does the pt smoke?: Yes Smoking Status: Current every day smoker Does the pt drink ETOH?: No Does the pt have substance abuse?: Yes - Family History Family history: denies: Aortic aneursym, Aortic dissection - Immunizations Immunizations are current?: Yes - POLST Patient has POLST: No PD ED PE NORMAL - Vitals Vital signs reviewed: Yes - General General: Alert and oriented X 3, No acute distress, Well developed/nourished - HEENT HEENT: Moist mucous membranes, Pharynx benign - Neck Neck: Supple, no meningeal sign, No adenopathy - Cardiac Cardiac: RRR, No murmur - Respiratory Respiratory: Clear bilaterally - Abdomen Abdomen: Normal bowel sounds, Soft, Non tender, No organomegaly, Other (obviously with fundus above the umbilicus. Bedside U/S showing BPD 26w2d and good movement/FHR. ) - Female Female : Deferred - Rectal Rectal: Deferred - Back Back: No CVA TTP - Derm Derm: Normal color, Warm and dry - Extremities Extremities: No tenderness to palpate, No edema, No calf tenderness / cord - Neuro Neuro: Alert and oriented X 3, No motor deficit, Normal speech Results - Vitals Vitals: Vital Signs - 24 hr 06/01/20 06/01/20 06/01/20 09:50 10:18 10:50 Temperature 36.3 C L Heart Rate 95 95 93 Respiratory 17 16 19 Rate Blood Pressure 122/73 117/67 119/71 O2 Saturation 98 98 99 06/01/20 11:38 Temperature 36.6 C Heart Rate 81 Respiratory 18 Rate Blood Pressure 108/74 O2 Saturation 99 Oxygen O2 Source Room air - EKG (time done) 09:54 Rate: Rate (enter#) (97) Rhythm: NSR [place]: Normal Intervals: Normal [place] QRS: Normal Ischemia: Normal ST segments. No: ST elevation c/w ischemia, ST depression - Labs Labs: Laboratory Tests 06/01/20 06/01/20 06/01/20 11:02 11:02 11:15 WBC 15.7 H RBC 3.51 L Hgb 9.4 L Hct 29.3 L MCV 83.5 MCH 26.8 L MCHC 32.1 RDW 14.9 Plt Count 257 MPV 9.7 Neut # (Auto) 11.4 H Lymph # (Auto) 2.6 [place] # (Auto) 1.0 Eos # (Auto) 0.3 Baso # (Auto) 0.1 Absolute Nucleated RBC 0.00 Nucleated RBC % 0.0 Sodium 136 Potassium 3.8 Chloride 104 Carbon Dioxide 24 Anion Gap 8.0 BUN 9 Creatinine 0.4 Estimated GFR (MDRD) 179 Glucose 107 H Calcium 8.2 L Total Bilirubin 0.4 AST 19 ALT 32 Alkaline Phosphatase 156 H Total Protein 6.0 L Albumin 2.5 L Globulin 3.5 Albumin/Globulin Ratio 0.7 L Urine Color YELLOW Urine Clarity CLEAR Urine pH 7.0 Ur Specific [place] 1.020 Urine Protein NEGATIVE Urine Glucose (UA) NEGATIVE Urine Ketones NEGATIVE Urine Occult Blood NEGATIVE Urine Nitrite NEGATIVE Urine Bilirubin NEGATIVE Urine Urobilinogen 0.2 (NORMAL) Ur Leukocyte Esterase NEGATIVE Ur Microscopic Review NOT INDICATED Urine Culture Comments NOT INDICATED Urine Opiates Screen NEGATIVE Ur Oxycodone Screen NEGATIVE Urine Methadone Screen NEGATIVE Ur Propoxyphene Screen NEGATIVE Ur Barbiturates Screen NEGATIVE Ur Tricyclics Screen NEGATIVE Ur Phencyclidine Scrn NEGATIVE Ur Amphetamine Screen POSITIVE H U Methamphetamines Scrn POSITIVE H U Benzodiazepines Scrn NEGATIVE Urine Cocaine Screen NEGATIVE U Cannabinoids Screen POSITIVE H - Rads (name of study) CXR Radiology: Prelim report reviewed (no acute process), See rad report PD MEDICAL DECISION MAKING - ED course Complexity details: reviewed results (bedside U/S showed good FHR, movement, and BPD showing 26w2d. ), considered differential (brief chest pain 2 days ago, resolved. No symptoms the past day or today. No leg swelling. Vitals are good. Clinically nonsuspicious for DVT. No URI symptoms. CXR is clear. ), d/w patient, d/w sales operations consultant (Dr. Mahoney garage construction equipment mechanic and will see pt in L&D/OB once done in ER. ) Departure - Departure Disposition: 01 Home, Self Care Clinical Impression: Chest pain Qualifiers: Chest pain type: precordial pain Qualified Code(s): R07.2 - Precordial pain Qualifiers: Weeks of gestation: 26 weeks Qualified Code(s): Z3A.26 - 26 weeks gestation of Condition: Stable Record reviewed to determine appropriate education?: Yes Instructions: ED Chest Pain Atypical Unkn Cause Comments: Your EKG and chest x-ray and basic blood tests appear normal. We will have you go down to OB (labor and delivery) to be evaluated on your . I do not see any significant cause for the pain episode you had a couple of days ago. Presume some musculoskeletal pain or such. Tylenol if needed for repeat episodes. Discharge Date/Time: 06/01/20 12:00
--- NOTE | 2020-06-01 11:05 | XRAY Report ---
PROCEDURE: Chest 1 View X-Ray INDICATIONS: chest pain TECHNIQUE: One view of the chest was acquired. COMPARISON: Chest radiograph 07/25/2015. FINDINGS: Surgical changes and devices: None. Lungs and pleura: No pleural effusions or pneumothorax. Lungs are clear. Mediastinum: Mediastinal contours appear normal. Heart size is normal. Bones and chest wall: No suspicious bony lesions. Overlying soft tissues appear unremarkable. IMPRESSION: No acute cardiopulmonary abnormality. Reviewed by: Nicola March MD on 06/01/2020 11:03 AM [facility] Approved by: Nicola March MD on 06/01/2020 11:03 AM [facility] Station ID: [id number]
[2020-06-01 11:07] LABS: BASOPHILS # (AUTO) 0.1 10^3/uL (0.0-0.1); BASOPHILS % (AUTO) 0.5 %; EOSINOPHILS # (AUTO) 0.3 10^3/uL (0.0-0.7); EOSINOPHILS % (AUTO) 2.2 %; HGB - HEMOGLOBIN 9.4 g/dL (12.0-16.0); LYMPHOCYTES # (AUTO) 2.6 10^3/uL (1.5-3.5); LYMPHOCYTES % (AUTO) 16.2 %; MEAN CORPUSCULAR HEMOGLOBIN 26.8 pg (27.0-31.0); MEAN CORPUSCULAR HGB CONC 32.1 g/dL (32.0-36.0); MEAN CORPUSCULAR VOLUME 83.5 fL (81.0-99.0); MEAN PLATELET VOLUME 9.7 fL (7.9-10.8); MONOCYTES % (AUTO) 6.4 %; NEUTROPHILS # (AUTO) 11.4 10^3/uL (1.5-6.6); NEUTROPHILS % (AUTO) 72.7 %; PLT - PLATELET COUNT 257 10^3/uL (130-450); RED BLOOD COUNT 3.51 10^6/uL (4.20-5.40); RED CELL DISTRIBUTION WIDTH 14.9 % (12.0-15.0); WHITE BLOOD COUNT 15.7 x10^3/uL (4.8-10.8)
[2020-06-01 11:20] LABS: ALBUMIN 2.5 g/dL (3.2-5.5); ALBUMIN/GLOBULIN RATIO 0.7 (1.0-2.2); BILIRUBIN,TOTAL 0.4 mg/dL (0.2-1.0); CALCIUM 8.2 mg/dL (8.5-10.3); CREATININE 0.4 mg/dL (0.4-1.0)
[2020-06-01 11:25] LABS: MUDS CUTOFF CONCENTRATIONS CUTOFF CONC BELOW:
[2020-06-01 11:28] LABS: BILIRUBIN,URINE NEGATIVE (NEGATIVE); CLARITY,URINE CLEAR (CLEAR); GLUCOSE, URINE (UA) NEGATIVE (NEGATIVE); KETONES,URINE (UA) NEGATIVE (NEGATIVE); LEUKOCYTE ESTERASE, URINE NEGATIVE (NEGATIVE); NITRITE,URINE NEGATIVE (NEGATIVE); OCCULT BLOOD,URINE NEGATIVE (NEGATIVE); PROTEIN,URINE NEGATIVE (NEGATIVE); UROBILINOGEN,URINE 0.2 (NORMAL) E.U./dL (NORMAL)
[2020-06-01 11:38] VITALS: BP 108/74
[2020-06-01 11:38] LABS: METHAMPHETAMINES SCREEN, URINE POSITIVE (NEGATIVE)
[2020-06-01 11:39] LABS: AMPHETAMINE SCREEN,URINE POSITIVE (NEGATIVE); BENZODIAZEPINES SCREEN, URINE NEGATIVE (NEGATIVE); COCAINE SCREEN URINE NEGATIVE (NEGATIVE); METHADONE SCREEN, URINE NEGATIVE (NEGATIVE); OPIATE SCREEN, URINE NEGATIVE (NEGATIVE); OXYCODONE SCREEN, URINE NEGATIVE (NEGATIVE); PROPOXYPHENE SCREEN, URINE NEGATIVE (NEGATIVE); TRICYCLIC ANTIDEPRESSANT,URINE NEGATIVE (NEGATIVE)
--- NOTE | 2020-06-01 14:16 | PROVIDER PROGRESS NOTE ---
Subjective - Subjective Subjective: Patient seen in the ER for chest pain, was advised to go straight to L&D to initiate care. She did not show up on L&D. I attempted to call her to offer her support and care--phone number on demographics sheet called and "voice mail is not set up". Denzel Objective - Vital Signs/Intake & Output Vital Signs: Vital Signs x48h Temp Pulse Resp BP Pulse Ox 06/01/20 11:38 97.9 F 81 18 108/74 99 06/01/20 10:50 93 19 119/71 99 06/01/20 10:18 95 16 117/67 98 06/01/20 09:50 97.3 F L 95 17 122/73 98 - Lab Results Fish Bones: 06/01/20 11:02 06/01/20 11:02 Other Labs: Lab Results x24hrs 06/01/20 06/01/20 06/01/20 Range/Units 11:15 11:02 11:02 WBC 15.7 H (4.8-10.8) x10^3/uL RBC 3.51 L (4.20-5.40) 10^6/uL Hgb 9.4 L (12.0-16.0) g/dL Hct 29.3 L (37.0-47.0) % MCV 83.5 (81.0-99.0) fL MCH 26.8 L (27.0-31.0) pg MCHC 32.1 (32.0-36.0) g/dL RDW 14.9 (12.0-15.0) % Plt Count 257 (130-450) 10^3/uL MPV 9.7 (7.9-10.8) fL Neut # (Auto) 11.4 H (1.5-6.6) 10^3/uL Lymph # (Auto) 2.6 (1.5-3.5) 10^3/uL [place] # (Auto) 1.0 (0.0-1.0) 10^3/uL Eos # (Auto) 0.3 (0.0-0.7) 10^3/uL Baso # (Auto) 0.1 (0.0-0.1) 10^3/uL Absolute Nucleated RBC 0.00 x10^3/uL Nucleated RBC % 0.0 /100WBC Sodium 136 (135-145) mmol/L Potassium 3.8 (3.5-5.0) mmol/L Chloride 104 (101-111) mmol/L Carbon Dioxide 24 (21-32) mmol/L Anion Gap 8.0 (6-13) BUN 9 (6-20) mg/dL Creatinine 0.4 (0.4-1.0) mg/dL Estimated GFR (MDRD) 179 (>89) Glucose 107 H (70-100) mg/dL Calcium 8.2 L (8.5-10.3) mg/dL Total Bilirubin 0.4 (0.2-1.0) mg/dL AST 19 (10-42) IU/L ALT 32 (10-60) IU/L Alkaline Phosphatase 156 H (42-121) IU/L Total Protein 6.0 L (6.7-8.2) g/dL Albumin 2.5 L (3.2-5.5) g/dL Globulin 3.5 (2.1-4.2) g/dL Albumin/Globulin Ratio 0.7 L (1.0-2.2) Urine Color YELLOW Urine Clarity CLEAR (CLEAR) Urine pH 7.0 (5.0-7.5) PH Ur Specific [place] 1.020 (1.002-1.030) Urine Protein NEGATIVE (NEGATIVE) mg/dL Urine Glucose (UA) NEGATIVE (NEGATIVE) mg/dL Urine Ketones NEGATIVE (NEGATIVE) mg/dL Urine Occult Blood NEGATIVE (NEGATIVE) Urine Nitrite NEGATIVE (NEGATIVE) Urine Bilirubin NEGATIVE (NEGATIVE) Urine Urobilinogen 0.2 (NORMAL) (NORMAL) E.U./dL Ur Leukocyte Esterase NEGATIVE (NEGATIVE) Ur Microscopic Review NOT INDICATED Urine Culture Comments NOT INDICATED Urine Opiates Screen NEGATIVE (NEGATIVE) Ur Oxycodone Screen NEGATIVE (NEGATIVE) Urine Methadone Screen NEGATIVE (NEGATIVE) Ur Propoxyphene Screen NEGATIVE (NEGATIVE) Ur Barbiturates Screen NEGATIVE (NEGATIVE) Ur Tricyclics Screen NEGATIVE (NEGATIVE) Ur Phencyclidine Scrn NEGATIVE (NEGATIVE) Ur Amphetamine Screen POSITIVE H (NEGATIVE) U Methamphetamines Scrn POSITIVE H (NEGATIVE) U Benzodiazepines Scrn NEGATIVE (NEGATIVE) Urine Cocaine Screen NEGATIVE (NEGATIVE) U Cannabinoids Screen POSITIVE H (NEGATIVE)
== END 2020-06-01 12:00 | disposition home or self-care (01) ==
LOC: ED 09:44
DX: O99.891 Other specified diseases and conditions complicating pregnancy (principal); R07.2 Precordial pain; O99.332 Smoking (tobacco) complicating pregnancy, second trimester; F17.200 Nicotine dependence, unspecified, uncomplicated; Z3A.26 26 weeks gestation of pregnancy
CPT/HCPCS: 36415; 71045; 80053; 80306; 81001; 81003; 85025; 87086; 93005; 99284

== ENCOUNTER 2020-08-06 20:12 | Outpatient (CLI) | payer MEDICAID | END 2020-08-06 20:13 | disposition critical access hospital (66) | LOC: EMS 20:12 | PROVIDERS: ATTEND Surgery | DX: O99.891 Other specified diseases and conditions complicating pregnancy (principal); Z59.0 Homelessness | CPT/HCPCS: A0425; A0429; A0999 ==

== ENCOUNTER 2020-08-06 20:38 | Inpatient (IN) | payer MEDICAID ==
[2020-08-06] MEDS ORDERED: LACTATED RINGERS 1,000 ML IV ONE ×2 (21:33→23:54)
[2020-08-06] MEDS ORDERED: FLU VACC QS2020-21(6MOS UP)/PF 60 MCG/0.5 ML SYRINGE IM ONE (21:48)
[2020-08-06] MEDS ORDERED: TETANUS/DIPHTHERIA/PERTUSSIS 0.5 ML SYRINGE IM ONE (21:48)
[2020-08-06] MEDS ORDERED: ceFAZolin 2 GM/50 ML 2 GM/50 ML BAG IV ONE (22:10)
[2020-08-06 22:15] LABS: BASOPHILS % (AUTO) 0.6 %; EOSINOPHILS % (AUTO) 1.3 %; HGB - HEMOGLOBIN 8.7 g/dL (12.0-16.0); LYMPHOCYTES % (AUTO) 18.1 %; MEAN CORPUSCULAR HEMOGLOBIN 24.7 pg (27.0-31.0); MEAN CORPUSCULAR HGB CONC 31.4 g/dL (32.0-36.0); MEAN CORPUSCULAR VOLUME 78.7 fL (81.0-99.0); MEAN PLATELET VOLUME 10.5 fL (7.9-10.8); NEUTROPHILS % (AUTO) 69.9 %; PLT - PLATELET COUNT 238 10^3/uL (130-450); RED BLOOD COUNT 3.52 10^6/uL (4.20-5.40); RED CELL DISTRIBUTION WIDTH 17.3 % (12.0-15.0); WHITE BLOOD COUNT 23.6 x10^3/uL (4.8-10.8)
[2020-08-06] MEDS ORDERED: AMPICILLIN 2 GM in SODIUM CHLORIDE 0.9% MINIBAG 100 ML IV SCH (22:15)
--- NOTE | 2020-08-06 22:15 | ANESTHESIA ---
Pre-Anesthesia VS, & Labs - Diagnosis Active labor, transverse twins - Procedure primary c/s Vital Signs: Temp Pulse Resp BP Pulse Ox 37 C 119 H 16 118/74 99 08/06/20 21:04 08/06/20 21:04 08/06/20 21:04 08/06/20 21:04 08/06/20 21:04 Height: 5 ft 3 in Weight (kg): 102.058 kg Body Mass Index: 39.8 BMI Classification: Obese - NPO Last Food Intake: 1999 - Is Patient ?: Yes Home Medications and Allergies Active Medications Ampicillin Sodium 2 gm/ Sodium (Chloride) 100 mls @ 100 mls/hr IV Q6HR OSMAR Ampicillin Sodium 1 gm/ Sodium (Chloride) 100 mls @ 200 mls/hr IV Q4H OSMAR Cefazolin Sodium/Dextrose (Ancef 2 Gm/50 Ml) 2 gm in 50 mls @ 100 mls/hr IV ONCE ONE Stop: 08/06/20 22:39 pNV Allergies/Adverse Reactions: Allergies Allergy/AdvReac Type Severity Reaction Status Date / Time azithromycin [From Zithromax] Allergy Severe Emesis Verified 01/29/19 04:31 Anes History & Medical History - Anesthetic History Anesthesia Complications: reports: No previous complications - Medical History Cardiovascular: reports: None Pulmonary: reports: None Gastrointestinal: reports: None Urinary: reports: Chronic bladder infection Neuro: reports: None Musculoskeletal: reports: None Endocrine/Autoimmune: reports: None Blood Disorders: reports: None Skin: reports: None Smoking Status: Current every day smoker Psychosocial: reports: Amphetamine (Last use on Thursday), Cannabis (daily) History of Cancer?: No - Surgical History Gynecologic: LEEP (Cervical surgery) - Obstetrical History : 6 Parity: 5 Events: positive: No care Complications: positive: Maternal drug use Exam General: Alert, Oriented x3, Severe distress Dental: Poor dentition Mouth Openin Fingerbreadth Neck Mobility: Normal Mallampati classification: III Thyromental Distance: 4-6 cm Mental/Cognitive Status: Alert/Oriented X3, Normal for patient Plan Anesthesia Type: Spinal Consent for Procedure(s) Verified and Reviewed: Yes Code Status: Attempt Resuscitation ASA classification: 3-Severe systemic disease Is this case an emergency?: No
--- NOTE | 2020-08-06 22:19 | HISTORY & PHYSICAL EXAMINATION ---
HPI - History of Present Illness HPI Comment/Other: CC: labor HPI: labor started this afternoon, worsening with time, lots of back pain, feels like real labor. No LOF. No VB. +FM. OB: no care. LMP 12/01/19 [place] 09/06/20 35w4d PMH: polysubstance PSH: neg Allergies: azithromycin --> nausea Meds: none SH: daily THC, daily tobacco 2 cigs. 2x per week meth use. FH: no anesthesia problems ROS: no fevers or cough. Tooth pain. PMH/PSH - Past Medical History Cardiovascular: positive: None Respiratory: positive: None Endocrine/Autoimmune: positive: None GI: positive: None LEARNING AND DEVELOPMENT INTERN: positive: None : positive: Chronic bladder infection HEENT: positive: None Psych: positive: None Musculoskeletal: positive: None Derm: positive: None MRSA Hx?: No - Past Surgical History /LEARNING AND DEVELOPMENT INTERN: positive: LEEP (Cervical surgery) Social & Family Hx - Social History Does the pt smoke?: Yes Smoking Status: Current every day smoker Does the pt drink ETOH?: No Does the pt have substance abuse?: Yes - POLST Patient has POLST: No Meds/Allgy - Home Medications Home Medications: Ambulatory Orders Medication Instructions Recorded Confirmed Ibuprofen [Motrin] 800 mg PO Q8H PRN #30 tablet 08/11/14 Amoxicillin 875 mg PO BID #14 tablet 01/29/19 Hydrocodone/Acetaminophen 1 - 2 each PO Q6H PRN #14 tablet 01/29/19 [Hydrocodon-Acetaminophen 5-325] - Allergies Allergies/Adverse Reactions: Allergies Allergy/AdvReac Type Severity Reaction Status Date / Time azithromycin [From Zithromax] Allergy Severe Emesis Verified 01/29/19 04:31 Exam - Vital Signs Reviewed Vital Signs: Yes Vital Signs: Vital Signs x48h Temp Pulse Resp BP Pulse Ox 08/06/20 21:04 98.6 F 119 H 16 118/74 99 - Physical Exam Comments/Other: Writhing in pain, holding mouth Abd soft, distended SVE 1.5cm with RN -->3cm with me [place] hard to trace Femur length 33w4d Twins, A breech, B transverse, both living Impression/Plan - Problem List Problem List: 40yo at 35w4d by certain, regular LMP c/w 33w4d femur length here, with active spontaneous labor and twin . No care. --To OR for delivery A is breech --Ancef --NOB labs --Type and cross; hemorrhage meds in room --Social work consult --Will need abx for likely tooth abscess.
[2020-08-06 22:24] LABS: ABNORMAL LYMPHS % (MANUAL) 0 %
[2020-08-06 22:28] LABS: ALBUMIN 2.4 g/dL (3.2-5.5); ALBUMIN/GLOBULIN RATIO 0.7 (1.0-2.2); BILIRUBIN,TOTAL 0.3 mg/dL (0.2-1.0); CALCIUM 8.4 mg/dL (8.5-10.3); CREATININE 0.7 mg/dL (0.4-1.0); TOTAL PROTEIN 5.8 g/dL (6.7-8.2)
[2020-08-06] MEDS ORDERED: FAMOTIDINE 20 MG/2 ML VIAL IVP STA (22:28)
[2020-08-06] MEDS ORDERED: CITRIC ACID/SODIUM CITRATE 15 ML UDC PO STA (22:29)
[2020-08-06] MEDS ORDERED: METOCLOPRAMIDE 10 MG/2 ML VIAL IVP STA (22:29)
[2020-08-06] MEDS ORDERED: CARBOPROST TROMETHAMINE 250 MCG/ML AMP IM ONE (22:39)
[2020-08-06] MEDS ORDERED: TRANEXAMIC ACID 1,000 MG/10 ML VIAL ONE (22:40)
[2020-08-06] MEDS ORDERED: MORPHINE PF 5 MG/10 ML VIAL ONE (22:41)
[2020-08-06] MEDS ORDERED: fentaNYL 100 MCG/2 ML VIAL ONE (22:41)
[2020-08-06] MEDS ORDERED: PHENYLEPHRINE 10 MG/ML VIAL ONE (22:42)
[2020-08-06] MEDS ORDERED: OXYTOCIN 10 UNIT/ML VIAL ONE (22:42)
[2020-08-06] MEDS ORDERED: METOCLOPRAMIDE 10 MG/2 ML VIAL ONE (22:46)
[2020-08-06] MEDS ORDERED: fentaNYL 100 MCG/2 ML VIAL IT ONE (22:49)
[2020-08-06] MEDS ORDERED: MORPHINE PF 5 MG/10 ML VIAL IT ONE (22:49)
[2020-08-06 22:56] LABS: BAND NEUTROPHILS % (MANUAL) 2 %; EOSINOPHILS # (MANUAL) 0.5 10^3/uL (0-0.7); LYMPHOCYTES # (MANUAL) 2.1 10^3/uL (1.5-3.5); LYMPHOCYTES % (MANUAL) 8 %; MONOCYTES # (MANUAL) 2.8 10^3/uL (0.0-1.0)
[2020-08-06 22:58] LABS: DIFFERENTIAL COMMENT MANUAL DIFFERENTIAL; PLATELET ESTIMATE, MANUAL NORMAL (130-450,000) (NORMAL); PLATELET MORPHOLOGY NORMAL APPEARANCE (NORMAL)
[2020-08-06] MEDS ORDERED: SODIUM CHLORIDE 0.9% 1,000 ML IV SCH (23:00)
[2020-08-06] MEDS ORDERED: MORPHINE 2 MG/ML CARPUJECT IVP PRN (23:13)
[2020-08-06] MEDS ORDERED: HYDROmorphone 0.5 MG/0.5 ML SYRINGE IVP PRN (23:13)
[2020-08-06] MEDS ORDERED: ONDANSETRON 4 MG/2 ML VIAL IVP PRN ×2 (23:13)
[2020-08-06] MEDS ORDERED: NALBUPHINE 10 MG/ML AMP IVP PRN (23:13)
[2020-08-06] MEDS ORDERED: ATROPINE ABBOJECT 1 MG/10 ML SYRINGE IVP PRN (23:13)
[2020-08-06] MEDS ORDERED: NALOXONE 0.4 MG/ML VIAL IVP PRN ×2 (23:13)
[2020-08-06] MEDS ORDERED: fentaNYL 100 MCG/2 ML VIAL IVP PRN (23:13)
[2020-08-06] MEDS ORDERED: KETOROLAC 30 MG/ML VIAL ONE (23:40)
[2020-08-06 23:43] LABS: MUDS CUTOFF CONCENTRATIONS CUTOFF CONC BELOW:
[2020-08-06] MEDS ORDERED: LACTATED RINGERS 1,000 ML IV SCH (23:45)
--- NOTE | 2020-08-07 00:01 | ANESTHESIA POST OP EVALUATION ---
Anesthesia Post Eval - Post Anesthesia Eval Vitals: Last Vital Signs Temp 36.6 C 08/06/20 23:55 Pulse 90 08/06/20 23:55 Resp 16 08/06/20 23:55 BP 111/67 08/06/20 23:55 Pulse Ox 100 08/06/20 23:55 CV Function Including HR & BP: positive: Stable Pain Control: positive: Satisfactory Nausea & Vomiting: positive: Negative Mental Status: positive: Baseline Respiratory Status: Airway Patent Hydration Status: Satisfactory Anesthesia Complications: positive: None
--- NOTE | 2020-08-07 00:05 | OPERATIVE REPORT ---
Operative Report - General Admit Date: 08/06/20 Procedure Performed: Date of surgery 08/07/20 Preoperative diagnosis: labor at 35w, twin gestation, breech/transverse presentation Postoperative diagnosis: same and placental abruption for twin A Procedure: Primary Surgeon: Denzel Emt P: Larry BOWER Anesthesia: spinal Estimated Blood Loss: 600cc IV Fluids: 900cc Urine output: 60cc Counts: correct sponge and instrument Complications: none apparent Disposition: stable to recovery room Prophylaxis: SCD to bilateral lower extremities, Ancef 2g IV Specimens: to pathology placenta, to lab cord blood Findings: Normal uterus, ovaries, fallopian tubes. A was complete breech, red amniotic fluid containing copious clot, apgars 8/8. B was double footling breech, clear fluid, apgars 5/8.
[2020-08-07] MEDS ORDERED: MAGNESIUM HYDROXIDE 2,400 MG/30 ML UDC PO PRN (00:07)
[2020-08-07] MEDS ORDERED: METHYLERGONOVINE 0.2 MG/ML VIAL IM PRN (00:07)
[2020-08-07] MEDS ORDERED: OXYTOCIN/SODIUM CHLORIDE 500 ML IV PRN (00:07)
[2020-08-07] MEDS ORDERED: HYDROCORTISONE 1% CREAM 28 GM TUBE PR PRN (00:07)
[2020-08-07] MEDS ORDERED: SODIUM CHLORIDE FLUSH 0.9% 10 ML SYRINGE IVP PRN (00:07)
[2020-08-07] MEDS ORDERED: SIMETHICONE CHEW 80 MG TABLET PO PRN (00:07)
[2020-08-07] MEDS ORDERED: WITCH HAZEL/GLYCERIN 1 PAD TOP PRN (00:07)
[2020-08-07] MEDS ORDERED: ONDANSETRON ODT 4 MG TABLET TL PRN (00:07)
[2020-08-07] MEDS ORDERED: CARBOPROST TROMETHAMINE 250 MCG/ML AMP IM ONE (00:07)
[2020-08-07 00:08] LABS: AMPHETAMINE SCREEN,URINE POSITIVE (NEGATIVE); BENZODIAZEPINES SCREEN, URINE NEGATIVE (NEGATIVE); COCAINE SCREEN URINE NEGATIVE (NEGATIVE); METHADONE SCREEN, URINE NEGATIVE (NEGATIVE); METHAMPHETAMINES SCREEN, URINE POSITIVE (NEGATIVE); OPIATE SCREEN, URINE NEGATIVE (NEGATIVE); OXYCODONE SCREEN, URINE NEGATIVE (NEGATIVE); PROPOXYPHENE SCREEN, URINE NEGATIVE (NEGATIVE); TRICYCLIC ANTIDEPRESSANT,URINE NEGATIVE (NEGATIVE)
[2020-08-07] MEDS ORDERED: LIDOCAINE TOPICAL 4% 50 ML BOTTLE MM PRN (00:13)
[2020-08-07] MEDS ORDERED: FERRIC GLUCONATE 125 MG in SODIUM CHLORIDE 0.9% 100ML 100 ML IV ONE (00:15)
[2020-08-07] MEDS ORDERED: SODIUM CHLORIDE FLUSH 0.9% 10 ML SYRINGE IVP SCH (01:00)
[2020-08-07] MEDS ORDERED: AMPICILLIN 1 GM in SODIUM CHLORIDE 0.9% MINIBAG 100 ML IV SCH (02:00)
[2020-08-07] MEDS: AMOX/CLAV 875 MG/125 MG TABLET PO SCH ×2 (02:17→14:07)
[2020-08-07] MEDS: ACETAMINOPHEN 500 MG TABLET PO SCH ×3 (02:17→18:11)
[2020-08-07] MEDS: diphenhydrAMINE 25 MG CAPSULE PO PRN ×2 (02:29→08:37)
--- NOTE | 2020-08-07 02:43 | OPERATIVE REPORT ---
DATE OF SERVICE: 08/06/2020 Physician: Lexy Mahoney MD PREOPERATIVE DIAGNOSES 1. labor at 35 weeks. 2. Twin gestation with baby A breech and baby B transverse. POSTOPERATIVE DIAGNOSES 1. labor at 35 weeks. 2. Twin gestation with baby A breech and baby B transverse. 3. Placental abruption for twin A. PROCEDURE PERFORMED: Primary low transverse section. SURGEON: Lexy Mahoney MD COUPON COLLECTION CLERK: Diana Juarez CNM. ESTIMATED BLOOD LOSS: 600 mL INTRAVENOUS FLUIDS: 900 mL URINE OUTPUT: 60 mL COUNTS: Correct x2. COMPLICATIONS: None apparent. DISPOSITION: Stable to the recovery room. PROPHYLAXIS 1. SCDs to bilateral lower extremities. 2. Ancef 2 grams IV. SPECIMENS 1. Placenta to pathology. 2. Cord blood to the lab for typing. FINDINGS: Included a normal uterus. Ovaries and fallopian tubes were normal to palpation. Twin A w as in complete breech presentation and had red amniotic fluid with copious clots. Apgars were 8 and 8. Baby B was double footling breech with clear amniotic fluid and Apgars of 5 and 8. CLINICAL COURSE: The patient is a G6, P5-0-0-5 who arrived with no care in spontaneous pret erm labor. She admitted to methamphetamine use four days prior to delivery as well as daily nicotine and THC use. She had cervical change from 1.5 cm to 3 cm and then began bleeding as we were prepari ng for section. DESCRIPTION OF PROCEDURE: The patient was brought to the operating room, where she underwent spinal anesthesia. A Rivera catheter was placed and SCDs were placed. She was prepped and draped in the usu al sterile fashion. A scalpel was used to make a Pfannenstiel skin incision 3 cm superior to the pub ic symphysis. This was carried down to the fascia, which was nicked in the midline bilaterally. The fascial incision was extended laterally and slightly superiorly, sharply. Kochers were placed on th e inferior margin of the fascial incision and the fascia was bluntly and sharply dissected off of the rectus. The Kochers were replaced superiorly and the same was performed. The peritoneum was bluntl y entered. The peritoneum and rectus were stretched and room was adequate. A bladder retractor was placed. A scalpel was used to make a transverse incision in the lower uterine segment. The uterus w as breeched with a finger. The uterine incision was opened bluntly by applying caudal and cranial tr action. The membranes were ruptured with copious clot coming out. Peds was notified of probable fortino cental abruption. The surgeon's hand was placed in the uterine cavity and the buttocks were el evated and then delivered with the assistance of fundal pressure. The anterior arm was swept across the chest. The baby was rotated 180 degrees and the other arm was similarly swept across the chest. The head was delivered in flexion. The umbilical cord was clamped x2 and cut and the baby was dann d to the burglar alarm inspector in waiting. Palpation revealed baby B to be in double footling presentation. The membranes were ruptured with a scalpel and they were clear. The ankles were gently grasped and, with the assistance of fundal pressure, the baby was delivered to the level of the shoulders. Both a tristian were swept across the chest and then the head was delivered in flexion. The umbilical cord was c lamped x2 and cut. The baby was handed to the burglar alarm inspector in waiting. Twin A's cord was clamped wi th an umbilical cord clamp. The placenta was delivered with external uterine massage. Curettage with a dry laparotomy did not port[place] eld any retained membranes. The uterine incision was closed with a running layer of 0 Monocryl. A s econd imbricating suture was performed. There were small bleeders in the midline and on the left govind e that were oversewn with 0 Vicryl. Palpation of the ovaries and fallopian tubes was normal. The ut erine incision, rectus, and fascia were inspected with good hemostasis seen. The fascia was closed w ith a running layer of 0 Vicryl from end-to-end. The subcutaneous tissues were copiously irrigated a nd then closed with a running suture of 2-0 Vicryl. The skin was closed with 4-0 Monocryl in a subcu ticular fashion. Dermabond was then applied. Fundal massage yielded a normal amount of blood and cl ot. She was transported to the recovery room without difficulty. TD: 08/07/2020 00:08
[2020-08-07] MEDS: oxyCODONE 5 MG TABLET PO PRN ×2 (03:32→20:28)
[2020-08-07 04:33] LABS: C. PNEUMONIAE- RESP PCR PANEL NOT DETECTED
[2020-08-07 05:12] LABS: BASOPHILS % (AUTO) 0.4 %; EOSINOPHILS % (AUTO) 0.6 %; HGB - HEMOGLOBIN 7.6 g/dL (12.0-16.0); MEAN CORPUSCULAR HEMOGLOBIN 24.9 pg (27.0-31.0); MEAN CORPUSCULAR HGB CONC 31.5 g/dL (32.0-36.0); MEAN PLATELET VOLUME 10.9 fL (7.9-10.8); MONOCYTES % (AUTO) 6.9 %; NEUTROPHILS % (AUTO) 75.3 %; PLT - PLATELET COUNT 201 10^3/uL (130-450); RED BLOOD COUNT 3.05 10^6/uL (4.20-5.40); RED CELL DISTRIBUTION WIDTH 17.2 % (12.0-15.0); WHITE BLOOD COUNT 24.2 x10^3/uL (4.8-10.8)
[2020-08-07 05:19] LABS: ABNORMAL LYMPHS % (MANUAL) 0 %; BAND NEUTROPHILS % (MANUAL) 0 %
[2020-08-07 05:41] LABS: LYMPHOCYTES # (MANUAL) 4.8 10^3/uL (1.5-3.5); LYMPHOCYTES % (MANUAL) 20 %
[2020-08-07 05:42] LABS: DIFFERENTIAL COMMENT MANUAL DIFFERENTIAL
[2020-08-07 05:43] LABS: PLATELET ESTIMATE, MANUAL NORMAL (130-450,000) (NORMAL)
[2020-08-07 05:44] LABS: PLATELET MORPHOLOGY NORMAL APPEARANCE (NORMAL)
[2020-08-07] MEDS: IBUPROFEN 600 MG TABLET PO SCH ×3 (06:06→20:28)
[2020-08-07] MEDS: DOCUSATE SODIUM 100 MG CAPSULE PO SCH ×2 (08:37→20:28)
[2020-08-07] MEDS ORDERED: NICOTINE 14 MG PATCH TOP SCH (09:00)
--- NOTE | 2020-08-07 10:07 | PROVIDER PROGRESS NOTE ---
Subjective - Subjective Subjective: Pain at rest is moderate and fluctuates depending on movement. No nausea or vomiting. Not OOB yet. Tooth feels better. Objective - Vital Signs/Intake & Output Reviewed Vital Signs: Yes Vital Signs: Vital Signs x48h Pulse Pulse Resp BP Pulse Ox 08/07/20 08:00 94 16 113/68 97 08/07/20 07:00 99 18 112/72 96 08/07/20 05:30 101 H 15 107/74 98 08/07/20 04:45 102 H 15 113/73 100 08/07/20 04:00 105 H 17 122/80 100 08/07/20 03:00 114/76 08/07/20 02:45 100 15 108/57 L 100 08/07/20 02:30 107 H 15 107/70 100 08/07/20 02:15 102 H 16 97/83 H 100 Intake & Output: Intake & Output 08/04/20 08/05/20 08/06/20 08/07/20 23:59 23:59 23:59 23:59 Intake Total 180 Output Total 655 Balance -475 - Lab Results Fish Bones: 08/07/20 05:05 08/06/20 22:06 Other Labs: Lab Results x24hrs 08/07/20 08/07/20 08/06/20 Range/Units 05:05 02:45 23:23 WBC 24.2 H (4.8-10.8) x10^3/uL RBC 3.05 L (4.20-5.40) 10^6/uL Hgb 7.6 L (12.0-16.0) g/dL Hct 24.1 L (37.0-47.0) % MCV 79.0 L (81.0-99.0) fL MCH 24.9 L (27.0-31.0) pg MCHC 31.5 L (32.0-36.0) g/dL RDW 17.2 H (12.0-15.0) % Plt Count 201 (130-450) 10^3/uL MPV 10.9 H (7.9-10.8) fL Neut # (Auto) Not Reportable Lymph # (Auto) Not Reportable [place] # (Auto) Not Reportable Eos # (Auto) Not Reportable Baso # (Auto) Not Reportable Absolute Nucleated RBC Not Reportable Total Counted 100 Band Neuts % (Manual) 0 (0 - 10) % Reactive Lymphs % (Man) % Abnorm Lymph % (Manual) 0 % Nucleated RBC % Not Reportable Neutrophils # (Manual) 18.4 H (1.5-6.6) 10^3/uL Lymphocytes # (Manual) 4.8 H (1.5-3.5) 10^3/uL Monocytes # (Manual) 1.0 (0.0-1.0) 10^3/uL Eosinophils # (Manual) 0.0 (0-0.7) 10^3/uL Basophils # (Manual) 0.0 (0-0.1) 10^3/uL Differential Comment MANUAL DIFFERENTIAL Platelet Estimate NORMAL (130-450,000) (NORMAL) Platelet Morphology NORMAL APPEARANCE (NORMAL) RBC Morph Micro Appear 2+ ANISOCYTOSIS (NORMAL) Sodium (135-145) mmol/L Potassium (3.5-5.0) mmol/L Chloride (101-111) mmol/L Carbon Dioxide (21-32) mmol/L Anion Gap (6-13) BUN (6-20) mg/dL Creatinine (0.4-1.0) mg/dL Estimated GFR (MDRD) (>89) Glucose (70-100) mg/dL Calcium (8.5-10.3) mg/dL Total Bilirubin (0.2-1.0) mg/dL AST (10-42) IU/L ALT (10-60) IU/L Alkaline Phosphatase (42-121) IU/L Total Protein (6.7-8.2) g/dL Albumin (3.2-5.5) g/dL Globulin (2.1-4.2) g/dL Albumin/Globulin Ratio (1.0-2.2) Nasal Adenovirus (PCR) NOT DETECTED Nasal B. parapertussis DNA (PCR) NOT DETECTED Nasal Coronavir 229E PCR NOT DETECTED Nasal Coronavir HKU1 PCR NOT DETECTED Nasal Coronavir NL63 PCR NOT DETECTED Nasal Coronavir OC43 PCR NOT DETECTED Nasal Enterovir/Rhinovir PCR NOT DETECTED Nasal Influenza B PCR NOT DETECTED Nasal Influenza A PCR NOT DETECTED Nasal Parainfluen 1 PCR NOT DETECTED Nasal Parainfluen 2 PCR NOT DETECTED Nasal Parainfluen 3 PCR NOT DETECTED Nasal Parainfluen 4 PCR NOT DETECTED Nasal RSV (PCR) NOT DETECTED Nasal B.pertussis DNA PCR NOT DETECTED Nasal C.pneumoniae (PCR) NOT DETECTED Emmanuel Human Metapneumo PCR NOT DETECTED Nasal M.pneumoniae (PCR) NOT DETECTED Nasal SARS-CoV-2 (PCR) NOT DETECTED Urine Opiates Screen NEGATIVE (NEGATIVE) Ur Oxycodone Screen NEGATIVE (NEGATIVE) Urine Methadone Screen NEGATIVE (NEGATIVE) Ur Propoxyphene Screen NEGATIVE (NEGATIVE) Ur Barbiturates Screen NEGATIVE (NEGATIVE) Ur Tricyclics Screen NEGATIVE (NEGATIVE) Ur Phencyclidine Scrn NEGATIVE (NEGATIVE) Ur Amphetamine Screen POSITIVE H (NEGATIVE) U Methamphetamines Scrn POSITIVE H (NEGATIVE) U Benzodiazepines Scrn NEGATIVE (NEGATIVE) Urine Cocaine Screen NEGATIVE (NEGATIVE) U Cannabinoids Screen POSITIVE H (NEGATIVE) Blood Type Antibody Screen Crossmatch IS Only 08/06/20 08/06/20 08/06/20 Range/Units 22:06 22:06 22:06 WBC 23.6 H (4.8-10.8) x10^3/uL RBC 3.52 L (4.20-5.40) 10^6/uL Hgb 8.7 L (12.0-16.0) g/dL Hct 27.7 L (37.0-47.0) % MCV 78.7 L (81.0-99.0) fL MCH 24.7 L (27.0-31.0) pg MCHC 31.4 L (32.0-36.0) g/dL RDW 17.3 H (12.0-15.0) % Plt Count 238 (130-450) 10^3/uL MPV 10.5 (7.9-10.8) fL Neut # (Auto) Not Reportable Lymph # (Auto) Not Reportable [place] # (Auto) Not Reportable Eos # (Auto) Not Reportable Baso # (Auto) Not Reportable Absolute Nucleated RBC Not Reportable Total Counted 100 Band Neuts % (Manual) 2 (0 - 10) % Reactive Lymphs % (Man) 1 % Abnorm Lymph % (Manual) 0 % Nucleated RBC % Not Reportable Neutrophils # (Manual) 18.2 H (1.5-6.6) 10^3/uL Lymphocytes # (Manual) 2.1 (1.5-3.5) 10^3/uL Monocytes # (Manual) 2.8 H (0.0-1.0) 10^3/uL Eosinophils # (Manual) 0.5 (0-0.7) 10^3/uL Basophils # (Manual) 0.0 (0-0.1) 10^3/uL Differential Comment MANUAL DIFFERENTIAL Platelet Estimate NORMAL (130-450,000) (NORMAL) Platelet Morphology NORMAL APPEARANCE (NORMAL) RBC Morph Micro Appear 2+ STOMATOCYTES (NORMAL) Sodium 135 (135-145) mmol/L Potassium 4.1 (3.5-5.0) mmol/L Chloride 104 (101-111) mmol/L Carbon Dioxide 21 (21-32) mmol/L Anion Gap 10.0 (6-13) BUN 10 (6-20) mg/dL Creatinine 0.7 (0.4-1.0) mg/dL Estimated GFR (MDRD) 94 (>89) Glucose 117 H (70-100) mg/dL Calcium 8.4 L (8.5-10.3) mg/dL Total Bilirubin 0.3 (0.2-1.0) mg/dL AST 23 (10-42) IU/L ALT 21 (10-60) IU/L Alkaline Phosphatase 415 H (42-121) IU/L Total Protein 5.8 L (6.7-8.2) g/dL Albumin 2.4 L (3.2-5.5) g/dL Globulin 3.4 (2.1-4.2) g/dL Albumin/Globulin Ratio 0.7 L (1.0-2.2) Nasal Adenovirus (PCR) Nasal B. parapertussis DNA (PCR) Nasal Coronavir 229E PCR Nasal Coronavir HKU1 PCR Nasal Coronavir NL63 PCR Nasal Coronavir OC43 PCR Nasal Enterovir/Rhinovir PCR Nasal Influenza B PCR Nasal Influenza A PCR Nasal Parainfluen 1 PCR Nasal Parainfluen 2 PCR Nasal Parainfluen 3 PCR Nasal Parainfluen 4 PCR Nasal RSV (PCR) Nasal B.pertussis DNA PCR Nasal C.pneumoniae (PCR) Emmanuel Human Metapneumo PCR Nasal M.pneumoniae (PCR) Nasal SARS-CoV-2 (PCR) Urine Opiates Screen (NEGATIVE) Ur Oxycodone Screen (NEGATIVE) Urine Methadone Screen (NEGATIVE) Ur Propoxyphene Screen (NEGATIVE) Ur Barbiturates Screen (NEGATIVE) Ur Tricyclics Screen (NEGATIVE) Ur Phencyclidine Scrn (NEGATIVE) Ur Amphetamine Screen (NEGATIVE) U Methamphetamines Scrn (NEGATIVE) U Benzodiazepines Scrn (NEGATIVE) Urine Cocaine Screen (NEGATIVE) U Cannabinoids Screen (NEGATIVE) Blood Type O POSITIVE Antibody Screen NEGATIVE Crossmatch IS Only See Detail - Other Results/Comments Other Results/Comments: Sleepy but rousable. Abd soft, nt/nd Fundus firm, 2cm below umbilicus, nontender Incision clean dry intact No LE edema or tenderness A/P: 40yo POD #1 s/p primary at 34w for twin breech abruption, recovering appropriately --Coming off of meth, sleepy but arousable, no VS instability --WBC persists in being very elevated, pt with likely tooth abscess, is on augmentin for this, will get blood cultures and lactate. VSS. --Meth use, no custody of other children, wants to see her babies. Social work and CPS consults today. Interested in rehab. --NOB labs not back yet. Rh+ --Recommend flu shot and Tdap --Otherwise plan routine recovery.
[2020-08-08 00:04] LABS: TRICHOMONAS VAGINALIS DNA POSITIVE (NEGATIVE)
[2020-08-08] MEDS: oxyCODONE 5 MG TABLET PO PRN (00:20)
[2020-08-08] MEDS ORDERED: IBUPROFEN 600 MG TABLET PO SCH (01:00)
[2020-08-08] MEDS: AMOX/CLAV 875 MG/125 MG TABLET PO SCH (02:09)
[2020-08-08] MEDS: ACETAMINOPHEN 500 MG TABLET PO SCH ×2 (02:09→09:37)
[2020-08-08] MEDS: IBUPROFEN 600 MG TABLET PO SCH ×2 (02:09→09:39)
--- NOTE | 2020-08-08 08:39 | Discharge Plan ---
Discharge Plan Problem Reviewed?: Yes Disposition: Home, Self Care Condition: Good Prescriptions: Docusate Sodium 100Mg Capsule [Colace 100Mg Capsule] 100 mg PO BID PRN #30 capsule PRN Reason: to soften stool Ibuprofen [Motrin] 600 mg PO Q6H PRN #30 tab PRN Reason: Pain Pnv No.95/Ferrous Fum/Folic AC [ Tablet] 1 tab PO DAILY #90 tablet oxyCODONE [Roxicodone] 5 mg PO Q4-6H PRN #20 tablet PRN Reason: Severe Pain Acetaminophen [Tylenol] 650 mg PO Q6H PRN #30 tab PRN Reason: Pain Diet: Regular Shower Restrictions: No Driving Restrictions: Yes (Not while on oxycodone) Additional Instructions or Follow Up instructions: Nothing in the vagina for 6 weeks: No intercourse, tampons, douching Call for: -Fever greater than 100.5 -Pain that does not improve with pain medication -Heavy bleeding in which you are soaking a pad an hour for 2 hours in a row -Incision becomes hot, hard, red, starts to open, or leaks foul smelling fluid No lifting more than 10# for [address] while on narcotics Ok to shower. Let water run over the incision and pat some soap onto the area. Do not scrub or apply lotion. Pat dry with a clean towel or use a behavioral sciences department chair. OK to use an unscented sanitary napkin or clean washcloth to keep the incision dry if the belly folds over the incision. No Smoking: If you smoke, Please STOP! Call for help. Follow-up with: Bong Maravilla MD [Provider Admit Priv/Credential] - (1w and 6w)
[2020-08-08 08:50] LABS: BASOPHILS % (AUTO) 0.6 %; HGB - HEMOGLOBIN 7.3 g/dL (12.0-16.0); LYMPHOCYTES % (AUTO) 19.5 %; MEAN CORPUSCULAR HGB CONC 31.6 g/dL (32.0-36.0); MEAN CORPUSCULAR VOLUME 79.1 fL (81.0-99.0); MEAN PLATELET VOLUME 10.8 fL (7.9-10.8); MONOCYTES % (AUTO) 6.7 %; NEUTROPHILS % (AUTO) 67.7 %; PLT - PLATELET COUNT 235 10^3/uL (130-450); RED BLOOD COUNT 2.92 10^6/uL (4.20-5.40); RED CELL DISTRIBUTION WIDTH 17.2 % (12.0-15.0); WHITE BLOOD COUNT 24.8 x10^3/uL (4.8-10.8)
[2020-08-08] MEDS: DOCUSATE SODIUM 100 MG CAPSULE PO SCH (09:01)
[2020-08-08 09:05] VITALS: BP 115/71
[2020-08-08 09:07] LABS: ABNORMAL LYMPHS % (MANUAL) 0 %; BAND NEUTROPHILS % (MANUAL) 0 %
[2020-08-08 09:09] LABS: EOSINOPHILS # (MANUAL) 0.2 10^3/uL (0-0.7); LYMPHOCYTES # (MANUAL) 7.4 10^3/uL (1.5-3.5); LYMPHOCYTES % (MANUAL) 30 %; MONOCYTES # (MANUAL) 0.7 10^3/uL (0.0-1.0); PLATELET ESTIMATE, MANUAL NORMAL (130-450,000) (NORMAL); PLATELET MORPHOLOGY NORMAL APPEARANCE (NORMAL); RBC MORPHOLOGY (MULTIPLE) 2+ MICROCYTOSIS (NORMAL)
[2020-08-08 09:11] LABS: DIFFERENTIAL COMMENT MANUAL DIFFERENTIAL
--- NOTE | 2020-08-08 10:15 | DISCHARGE SUMMARY ---
Physician: Lexy Mahoney MD DATE OF ADMISSION: 08/06/2020 DATE OF DISCHARGE: 08/08/2020 The patient was anemic on admission with a hematocrit of 27. ADMISSION DIAGNOSES: 1. Spontaneous labor at 35 weeks and 4 days. 2. No care. 3. Methamphetamine intoxication. 4. Occult twin with breech presentation. 5. Tooth abscess. DISCHARGE DIAGNOSES: 1. Status post section. 2. Tooth abscess. 3. Placental abruption. 4. Trichomonas vaginitis. 5. Anemia. OPERATIONS AND PROCEDURES: 08/06/2020: Primary low transverse section for breech twins at 35 weeks. Placental abruption was seen for twin A. Estimated blood loss was 600 mL The surgery was uncomplicated. HOSPITAL COURSE: The patient presented with no care. Her LMP was certain and her estimated due date was 35 weeks. She had a femur length measuring 33 weeks. She had surprise twins. Twin A was breech and so she went to the operating room for due to her cervix dilating and due to vaginal bleeding. Abruption was suspected. This was confirmed upon entry to the uterus. Two pediatricians attended the . Overall the infants did well. They were transported to a ICU shortly after delivery. The patient admitted to methamphetamine use on admission and her urine tox screen was positive. On postoperative day #0 and #1 the patient was withdrawing from her meth and was sleepy all this time, but arousable. Her vital signs remained stable. She received a social work consult for her meth abuse and homeless status. She does not have custody of her other children and CPS is involved. Patient has likely tooth abscess and was placed on Augmentin for this. This did improve her pain greatly. She was advised to see a dentist at discharge. The patient's admission, white count was 23 and this persisted at discharge. She was never febrile. Her vital signs were normal, lactate was normal. We will continue to treat her tooth abscess after discharge. She is Rh positive. Not all of the routine labs are back yet including rubella status. She did come out positive for trich and will be discharged home on metronidazole treatment. She did not experience excessive blood loss during her and her hematocrit was stable over time with a day 2, hematocrit of 23.1. She was tolerating this well and will be sent home on vitamins, which she was not taking at the time of admission. Otherwise, her course was unremarkable. By day #2, she was requesting to go home in order to see her children in the ICU. She was eating, ambulating, and urinating without difficulties. She did not have any problems with her breasts or mood or with pain control. She was afebrile with normal vital signs. Alert and resting, in no apparent distress. Affect appeared normal. PHYSICAL EXAM: ABDOMEN: Soft, nontender, nondistended. Fundus firm, nontender, and at the umbilicus. Incision clean, dry, and intact without erythema. EXTREMITIES: There is trace lower extremity edema bilaterally. DISPOSITION: Home. FOLLOWUP: In 1 [facility] with [facility]. Follow up with a dentist ESTRADA and resource information was given. Precautions: Routine and post-C section precautions given. DISCHARGE MEDICATIONS: 1. Ibuprofen, Tylenol, oxycodone p.r.n. pain. 2. Metronidazole 500 mg p.o. b.i.d. for 7 days for Trichomonas. 3. Augmentin 875 mg p.o. b.i.d. for 10 days for tooth abscess. 4. vitamins daily for her anemia. TD: 08/08/2020 09:49 WANDER
[2020-08-08 13:22] LABS: HIV AG/AB 4TH GEN NON-REACTIVE (NON-REACTIVE)
[2020-08-08 13:37] LABS: HEPATITIS B SURFACE ANTIGEN NON-REACTIVE (NON-REACTIVE); HEPATITIS C ANTIBODY NON-REACTIVE (NON-REACTIVE)
== END 2020-08-08 11:07 | disposition home or self-care (01) | DRG 786 ==
LOC: WFO 20:38 → FBP 20:38 → WFO 22:23 → FBP 22:24
PROVIDERS: ADMIT Obstetrics & Gynecology; ATTEND Obstetrics & Gynecology
PROC: 10D00Z1 Extraction of Products of Conception, Low, Open Approach (ICD-10-PCS; principal; 2020-08-06 22:30)
DX: O30.043 Twin pregnancy, dichorionic/diamniotic, third trimester (principal); O45.93 Premature separation of placenta, unspecified, third trimester; O60.14X0 Preterm labor third trimester with preterm delivery third trimester, not applicable or unspecified; O99.324 Drug use complicating childbirth; O98.32 Other infections with a predominantly sexual mode of transmission complicating childbirth; A59.01 Trichomonal vulvovaginitis; O32.1XX1 Maternal care for breech presentation, fetus 1; O32.8XX2 Maternal care for other malpresentation of fetus, fetus 2; Z37.2 Twins, both liveborn; F15.929 Other stimulant use, unspecified with intoxication, unspecified; F12.90 Cannabis use, unspecified, uncomplicated; O99.334 Smoking (tobacco) complicating childbirth; O75.89 Other specified complications of labor and delivery; K04.7 Periapical abscess without sinus; O90.81 Anemia of the puerperium; Z59.0 Homelessness; Z3A.35 35 weeks gestation of pregnancy
CPT/HCPCS: 0202U; 36415; 80053; 80306; 81599; 83036; 83605; 85025; 86803; 86850; 86900; 86901; 86920; 87040; 87081; 87210; 87340; 87389; 87491; 87591; 87661; 90715; 99213; A9270; J0690; J2274; J2916; J7120; 90686

== ENCOUNTER 2020-08-13 14:29 | Emergency (ER) | payer MEDICAID ==
[2020-08-13 14:35] VITALS: BP 141/78
[2020-08-13] MEDS ORDERED: oxyCODONE 5 MG TABLET PO STA (15:00)
--- NOTE | 2020-08-13 15:05 | ED Physician Documentation ---
History of Present Illness - Stated complaint Stated Complaint: POST OP PX/INFLAMATION - Chief complaint Chief Complaint: Wound - History obtained from History obtained from: Patient - History of Present Illness Timing: How many weeks ago (1) Pain level max: 7 Pain level now: 5 - Additonal information Additional information: 40-year-old female presents to the emergency department approximately 1 week status post . She states that she is concerned about infection. Still has some abdominal pain. Worse with movement and better with rest. She is having decreasing vaginal bleeding. No discharge. No fevers. No chills. No vomiting. Worse with walking, better with lying still. No redness. No s welling. No drainage Review of Systems Constitutional: denies: Fever, Chills : denies: Now EGA Skin: denies: Rash Musculoskeletal: denies: Neck pain, Back pain PD PAST MEDICAL HISTORY - Past Medical History Cardiovascular: None Respiratory: None Neuro: None Endocrine/Autoimmune: None GI: None CAST IRON DIPPER: None : Chronic bladder infection HEENT: None Psych: None Musculoskeletal: None Derm: None - Past Surgical History Past Surgical History: Yes /CAST IRON DIPPER: LEEP (Cervical surgery) - Present Medications Home Medications: Ambulatory Orders Medication Instructions Recorded Confirmed Pnv No.95/Ferrous Fum/Folic AC 1 tab PO DAILY #90 tablet 08/08/20 08/13/20 [ Tablet] - Allergies Allergies/Adverse Reactions: Allergies Allergy/AdvReac Type Severity Reaction Status Date / Time azithromycin [From Zithromax] Allergy Severe Emesis Verified 08/13/20 14:35 - Social History Does the pt smoke?: Yes Smoking Status: Current every day smoker Does the pt drink ETOH?: No Does the pt have substance abuse?: Yes - Immunizations Immunizations are current?: Yes - POLST Patient has POLST: No PD ED PE NORMAL - Vitals Vital signs reviewed: Yes - General General: Alert and oriented X 3, No acute distress, Well developed/nourished - HEENT HEENT: PERRL, Moist mucous membranes - Neck Neck: Supple, no meningeal sign - Cardiac Cardiac: RRR, Strong equal pulses - Respiratory Respiratory: No respiratory distress, Clear bilaterally - Abdomen Abdomen: Soft, Non tender, Non distended, Other (Incision is clean dry and intact without signs of infection.) - Derm Derm: Warm and dry - Extremities Extremities: No edema - Neuro Neuro: Alert and oriented X 3 - Psych Psych: Normal mood, Normal affect Results - Vitals Vitals: Vital Signs - 24 hr 08/13/20 14:31 Temperature 36.2 C L Heart Rate 90 Respiratory 18 Rate Blood Pressure 141/78 H O2 Saturation 96 Oxygen O2 Source Room air PD MEDICAL DECISION MAKING - ED course Complexity details: considered differential, d/w patient ED course: 40-year-old female here for a postoperative wound check. No signs of infection. No drainage. No dehiscence. We will continue supportive care and have her follow-up with her doctor. No evidence of endometritis. No fevers. No evidence of retained products. Patient counseled regarding signs and symptoms for which I believe and urgent re-evaluation would be necessary. Patient with good understanding of and agreement to plan and is comfortable going home at this time This document was made in part using voice recognition software. While efforts are made to proofread this document, sound alike and grammatical errors may occur. Departure - Departure Disposition: 01 Home, Self Care Clinical Impression: Encounter for postoperative wound check Condition: Good Instructions: ED Wound Check Post Op No Infec Follow-Up: your,doctor in 1 week [Other] Comments: Keep the wound clean. Follow-up with your doctor for further care. Return if you worsen. There is no infection today.
== END 2020-08-13 15:16 | disposition home or self-care (01) ==
LOC: ED 14:29
DX: Z48.89 Encounter for other specified surgical aftercare (principal); G89.18 Other acute postprocedural pain; F17.200 Nicotine dependence, unspecified, uncomplicated
CPT/HCPCS: 99282; 99284; A9270

== ENCOUNTER 2020-10-10 11:51 | Day surgery (SDC) | payer MEDICAID ==
[~2020-10-10 11:51] MED LIST: ACETAMINOPHEN 1,000 MG/100 ML 100 ML IV ONE; CELECOXIB 100 MG CAPSULE PO ONE; GABAPENTIN 400 MG CAPSULE ONE; ceFAZolin 2 GM/50 ML 0 GM/0 ML BAG IV ONE
[2020-10-10 12:36] LABS: HCG UR QUAL NEGATIVE
[2020-10-10] MEDS ORDERED: LACTATED RINGERS 1,000 ML IV ONE ×2 (12:48→15:55)
[2020-10-10 13:00] LABS: BASOPHILS % (AUTO) 0.6 %; EOSINOPHILS # (AUTO) 0.1 10^3/uL (0.0-0.7); EOSINOPHILS % (AUTO) 2.1 %; HCT - HEMATOCRIT 30.3 % (37.0-47.0); HGB - HEMOGLOBIN 9.4 g/dL (12.0-16.0); LYMPHOCYTES # (AUTO) 2.9 10^3/uL (1.5-3.5); MEAN CORPUSCULAR HEMOGLOBIN 23.5 pg (27.0-31.0); MEAN CORPUSCULAR VOLUME 75.8 fL (81.0-99.0); MEAN PLATELET VOLUME 10.1 fL (7.9-10.8); MONOCYTES # (AUTO) 0.5 10^3/uL (0.0-1.0); MONOCYTES % (AUTO) 6.8 %; NEUTROPHILS # (AUTO) 3.1 10^3/uL (1.5-6.6); NEUTROPHILS % (AUTO) 47.2 %; PLT - PLATELET COUNT 320 10^3/uL (130-450); RED CELL DISTRIBUTION WIDTH 19.1 % (12.0-15.0); WHITE BLOOD COUNT 6.6 x10^3/uL (4.8-10.8)
[2020-10-10] MEDS ORDERED: ceFAZolin 2 GM/50 ML 2 GM/50 ML BAG IV ONE (13:12)
[2020-10-10] MEDS ORDERED: HYDROmorphone 0.5 MG/0.5 ML SYRINGE IVP PRN ×2 (13:14→16:03)
[2020-10-10] MEDS ORDERED: ATROPINE ABBOJECT 1 MG/10 ML SYRINGE IVP PRN (13:14)
[2020-10-10] MEDS ORDERED: ONDANSETRON 4 MG/2 ML VIAL IVP PRN ×2 (13:14→16:03)
[2020-10-10] MEDS ORDERED: MORPHINE 2 MG/ML CARPUJECT IVP PRN (13:14)
[2020-10-10] MEDS ORDERED: METOCLOPRAMIDE 10 MG/2 ML VIAL IVP PRN (13:14)
[2020-10-10] MEDS ORDERED: NALOXONE 0.4 MG/ML VIAL IVP PRN (13:14)
[2020-10-10] MEDS ORDERED: fentaNYL 100 MCG/2 ML VIAL IVP PRN (13:14)
[2020-10-10] MEDS ORDERED: ePHEDrine 50 MG/ML VIAL IVP PRN (13:14)
--- NOTE | 2020-10-10 13:14 | ANESTHESIA ---
Pre-Anesthesia VS, & Labs - Diagnosis desires sterilization - Procedure laparoscopic salpingectomy Vital Signs: Temp Pulse Resp BP Pulse Ox 36.2 C L 76 18 113/70 100 10/10/20 12:27 10/10/20 12:27 10/10/20 12:27 10/10/20 12:27 10/10/20 12:27 Height: 5 ft 4 in Weight (kg): 95.1 kg Body Mass Index: 35.9 BMI Classification: Obese - NPO >8 hours - Is Patient ?: No - Lab Results Current Lab Results: Laboratory Tests 10/10/20 12:50: WBC 6.6, RBC 4.00 L, Hgb 9.4 L, Hct 30.3 L, MCV 75.8 L, MCH 23.5 L, MCHC 31.0 L, RDW 19.1 H, Plt Count 320, MPV 10.1, Neut # (Auto) 3.1, Lymph # (Auto) 2.9, [place] # (Auto) 0.5, Eos # (Auto) 0.1, Baso # (Auto) 0.0, Absolute Nucleated RBC 0.00, Nucleated RBC % 0.0 Lab results reviewed: Yes Fish Bones: 10/10/20 12:50 Home Medications and Allergies Allergies/Adverse Reactions: Allergies Allergy/AdvReac Type Severity Reaction Status Date / Time azithromycin [From Zithromax] Allergy Severe Emesis Verified 08/13/20 14:35 Anes History & Medical History - Anesthetic History Anesthesia Complications: reports: No previous complications Family history of Anesthesia Complications: Denies Family history of Malignant Hyperthermia: Denies - Medical History Cardiovascular: reports: None Pulmonary: reports: None Gastrointestinal: reports: None Urinary: reports: Chronic bladder infection Neuro: reports: None Musculoskeletal: reports: None Endocrine/Autoimmune: reports: None Blood Disorders: reports: None Skin: reports: None Smoking Status: Current every day smoker - Surgical History Gynecologic: reports: section, LEEP (Cervical surgery) Exam General: Alert, Oriented x3, Cooperative, No acute distress Dental: Loose/Frag, Poor dentition Mouth Openin Fingerbreadth Neck Mobility: Normal Mallampati classification: II Respiratory: Lungs clear, Normal breath sounds, No respiratory distress, No accessory muscle use Cardiovascular: Regular rate, Normal S1, Normal S2, No murmurs Plan Anesthesia Type: General Consent for Procedure(s) Verified and Reviewed: Yes Code Status: Attempt Resuscitation ASA classification: 2-Mild systemic disease Is this case an emergency?: No
[2020-10-10 13:27] LABS: CORONAVIRUS 229E-RESP PCR NOT DETECTED; CORONAVIRUS HKU1-RESP PCR NOT DETECTED; CORONAVIRUS NL63-RESP PCR NOT DETECTED; CORONAVIRUS OC43-RESP PCR NOT DETECTED; HUMAN METAPNEUMOVIRUS NOT DETECTED; INFLUENZA A- RESP PCR PANEL NOT DETECTED; INFLUENZA B - RESP PCR PANEL NOT DETECTED; PARAINFLUENZA VIRUS 1 NOT DETECTED; PARAINFLUENZA VIRUS 2 NOT DETECTED; RHINOVIRUS/ENTEROVIRUS NOT DETECTED; SARS-CoV-2 -RESP PCR PANEL NOT DETECTED
[2020-10-10 13:28] LABS: B. PARAPERTUSSIS- RESP PCR PAN NOT DETECTED; B. PERTUSSIS- RESP PCR PANEL NOT DETECTED; C. PNEUMONIAE- RESP PCR PANEL NOT DETECTED; M. PNEUMONIAE- RESP PCR PANEL NOT DETECTED; PARAINFLUENZA VIRUS 3 NOT DETECTED; PARAINFLUENZA VIRUS 4 NOT DETECTED; RSV- RESP PCR PANEL NOT DETECTED
[2020-10-10] MEDS ORDERED: LACTATED RINGERS 1,000 ML IV SCH (14:00)
[2020-10-10] MEDS ORDERED: ROCURONIUM 50 MG/5 ML VIAL ONE (14:02)
[2020-10-10] MEDS ORDERED: PROPOFOL 200 MG/20 ML VIAL IVP ONE (14:02)
[2020-10-10] MEDS ORDERED: MIDAZOLAM 2 MG/2 ML VIAL ONE (14:02)
[2020-10-10] MEDS ORDERED: fentaNYL 100 MCG/2 ML VIAL ONE ×2 (14:07→15:51)
[2020-10-10] MEDS ORDERED: BUPIVACAINE 0.5% PF 30 ML VIAL ONE (14:39)
[2020-10-10] MEDS ORDERED: LIDOCAINE 2%-EPI 1:100000 20 ML MDV ONE (14:39)
[2020-10-10] MEDS ORDERED: LIDOCAINE-MPF 2% 5 ML VIAL ONE (14:43)
[2020-10-10] MEDS ORDERED: BUPIVACAINE 0.5% PF 30 ML VIAL INFIL ONE ×3 (15:21)
[2020-10-10] MEDS ORDERED: LIDOCAINE 2%-EPI 1:100000 20 ML MDV SUBQ ONE ×3 (15:22)
[2020-10-10] MEDS ORDERED: DEXAMETHASONE 4 MG/ML VIAL ONE (15:26)
[2020-10-10] MEDS ORDERED: ONDANSETRON 4 MG/2 ML VIAL ONE (15:26)
--- NOTE | 2020-10-10 15:57 | OPERATIVE REPORT ---
Operative Report - General Procedure Date: 10/10/20 Planned Procedure: bilateral salpingectomy Pre-Op Diagnosis: undesired fertility Procedure Performed: Same Post Op Diagnosis: Same - Procedure Note Primary Surgeon: Bong Maravilla MD Secondary Surgeon: Radha Cash Anesthesia Provider: Jamin Madrid CRNA Anesthesia Technique: General ET tube Pathology: Bilateral tubes IV Fluids (mL): 1,000 Estimated Blood Loss (mL): 5 Urine Output (mL): 600
[2020-10-10] MEDS ORDERED: oxyCODONE 5 MG TABLET PO PRN (16:03)
[2020-10-10] MEDS ORDERED: LORazepam 2 MG/ML VIAL IVP PRN (16:03)
--- NOTE | 2020-10-10 16:11 | OPERATIVE REPORT ---
DATE OF SERVICE: 10/10/2020 Physician: Bong Maravilla MD ADMITTING DIAGNOSIS: Undesired fertility. DISCHARGE DIAGNOSIS: Undesired fertility. PROCEDURE: Laparoscopic bilateral salpingectomy. SURGEON: Bong Maravilla MD DISCOVERY MANAGER: Aditi Mcbride MD ANESTHESIA: Jamin Madrid CRNA ANESTHETIC: General via endotracheal tube. FINDINGS: Upon entering the abdominal cavity, there were some minimal adhesions of the left pelvic sidewall. The tubes and ovaries appeared to be free of disease. PROCEDURE: Following adequate endotracheal anesthesia, patient was placed in the dorsal lithotomy position in [facility]. At this point, a pelvic examination under anesthesia was performed. This was limited secondary to her abdominal wall thickness. Scars from previous sections were noted in the abdominal cavity. At this point, she was prepped and draped in the usual fashion. A timeout was performed, at which time the concerns were addressed. A speculum was placed in the vagina. The cervix was visualized and grasped with a single-tooth tenaculum. The cervix was dilated up to 8 mm and then sounded to 10 cm. A HUMI catheter was placed in the uterus for uterine manipulation. The steam box operator's gloves were changed, and a stab wound was made in the subumbilical region in the vertical position. A trocar and sheath were directed in the abdominal cavity. Following this, a laparoscope was introduced. There was no evidence of injury at site of insertion to bowel or bladder. Two additional ports were then placed, both in the left and right lower quadrants following local anesthesia with 0.25% Marcaine with 1% lidocaine with epinephrine. These were placed on first pass under direct visualization. The left fallopian tube was identified, followed to its fimbriated end. It was transected at the cornu. It was also cauterized and transected at the fimbriated end and through the mesosalpinx. Care was taken to stay as close to the tube as possible to minimize risk for injury to the ovarian vessels. This was then brought up through the port. The right fallopian tube was then grasped at its fimbriated end, cauterized, transected with a LigaSure. This was carried all the way up to the cornu. This was then cauterized and transected. Care was once again taken to avoid any injury to the ovarian vessels. This was brought through the other trocar sheath. The pelvis was inspected. There was no bleeding at all from any of the LigaSure sites. The appendix appeared to be normal. There were no other adhesions in the pelvis. At this point, the instruments were removed, the CO2 was allowed to escape, and following this the incisions were closed with 4-0 Monocryl with Dermabond. The instruments were then taken from the vagina. The patient tolerated the procedure well and was taken to recovery in stable condition. Sponge and needle counts were correct. Dr. Mcbride's assistance during this case with retraction, cauterization, as well as manipulating the uterus were indispensable to its success. TD: 10/10/2020 16:03 jl WANDER
[2020-10-10] MEDS ORDERED: oxyCODONE 5 MG TABLET ONE (16:49)
[2020-10-10 17:10] VITALS: BP 121/64
--- NOTE | 2020-10-10 18:27 | ANESTHESIA POST OP EVALUATION ---
Anesthesia Post Eval - Post Anesthesia Eval Vitals: Last Vital Signs Temp 37.3 C 10/10/20 16:45 Pulse 70 10/10/20 16:45 Resp 16 10/10/20 16:45 BP 121/64 10/10/20 16:45 Pulse Ox 100 10/10/20 16:45 CV Function Including HR & BP: positive: Stable Pain Control: positive: Satisfactory Nausea & Vomiting: positive: Negative Mental Status: positive: Baseline Respiratory Status: Airway Patent Hydration Status: Satisfactory Anesthesia Complications: positive: None
== END 2020-10-10 11:52 | disposition home or self-care (01) ==
LOC: SDS 11:51
PROVIDERS: ATTEND Obstetrics & Gynecology
PROC: 0UT74ZZ Resection of Bilateral Fallopian Tubes, Percutaneous Endoscopic Approach (ICD-10-PCS; principal; 2020-10-10 13:30)
DX: Z30.2 Encounter for sterilization (principal); E66.9 Obesity, unspecified; Z68.35 Body mass index [BMI] 35.0-35.9, adult; F17.200 Nicotine dependence, unspecified, uncomplicated
CPT/HCPCS: 0202U; 58661; 81025; 85025; A9270; J0131; J0690; J7120

== ENCOUNTER 2020-12-31 11:31 | Outpatient (CLI) | payer MEDICAID | END 2020-12-31 11:32 | disposition critical access hospital (66) | LOC: EMS 11:31 | DX: M54.9 Dorsalgia, unspecified (principal) | CPT/HCPCS: A0425; A0429; A0999 ==

== ENCOUNTER 2020-12-31 11:52 | Emergency (ER) | payer MEDICAID ==
--- OUTSIDE RECORDS SUMMARY | 2020-12-31 12:08 | EXTERNAL MEDICAL SUMMARY RPT | Continuity of Care Document ---
:1980 Demographics Phone Unavailable Preferred Language Unknown Marital Status Unknown Am[employer] Affiliation Unknown Race Unknown Ethnic Group Unknown Author Organization [facility] Address [address] [place] [address] Phone Allergies Encounters Medications Problems Results
[2020-12-31] MEDS ORDERED: KETOROLAC 30 MG/ML VIAL IVP STA (12:12)
[2020-12-31 12:31] LABS: BASOPHILS # (AUTO) 0.1 10^3/uL (0.0-0.1); BASOPHILS % (AUTO) 0.6 %; EOSINOPHILS # (AUTO) 0.3 10^3/uL (0.0-0.7); EOSINOPHILS % (AUTO) 2.1 %; HCT - HEMATOCRIT 31.2 % (37.0-47.0); HGB - HEMOGLOBIN 9.6 g/dL (12.0-16.0); LYMPHOCYTES # (AUTO) 2.4 10^3/uL (1.5-3.5); LYMPHOCYTES % (AUTO) 20.2 %; MEAN CORPUSCULAR HEMOGLOBIN 22.2 pg (27.0-31.0); MEAN CORPUSCULAR HGB CONC 30.8 g/dL (32.0-36.0); MEAN CORPUSCULAR VOLUME 72.2 fL (81.0-99.0); MEAN PLATELET VOLUME 9.8 fL (7.9-10.8); MONOCYTES # (AUTO) 0.8 10^3/uL (0.0-1.0); MONOCYTES % (AUTO) 6.8 %; NEUTROPHILS # (AUTO) 8.5 10^3/uL (1.5-6.6); PLT - PLATELET COUNT 336 10^3/uL (130-450); RED BLOOD COUNT 4.32 10^6/uL (4.20-5.40); RED CELL DISTRIBUTION WIDTH 19.5 % (12.0-15.0); WHITE BLOOD COUNT 12.1 x10^3/uL (4.8-10.8)
[2020-12-31] MEDS ORDERED: IOVERSOL 320 100 ML VIAL IVP ONE ×2 (12:37→14:14)
[2020-12-31 12:46] LABS: ALBUMIN 3.8 g/dL (3.2-5.5); ALBUMIN/GLOBULIN RATIO 1.2 (1.0-2.2); BILIRUBIN,TOTAL 0.5 mg/dL (0.2-1.0); CALCIUM 8.7 mg/dL (8.5-10.3); CREATININE 0.6 mg/dL (0.4-1.0); POTASSIUM 4.2 mmol/L (3.5-5.0)
--- NOTE | 2020-12-31 12:59 | ED Physician Documentation ---
History of Present Illness - Stated complaint Stated Complaint: SOA/BACK PX - Chief complaint Chief Complaint: Back Pain - History obtained from History obtained from: Patient, EMS - History of Present Illness Timing: Today Pain level max: 4 Pain level now: 4 Improved by: shallow breathing Worsened by: deep inspiration - Additonal information Additional information: 40-year-old female brought into the emergency department by EMS after she went to the walk-in clinic today for pain in her right back with inspiration. She denies any trauma. She did have a tubal ligation about 2 months ago. She denies cough, fever, congestion. Denies any possibility of given her recent sterilization. The pain is near the right lung base. No abdominal pain. No nausea or vomiting. No diarrhea or constipation. No history of blood clots. 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 : Chronic bladder infection HEENT: None Psych: None Musculoskeletal: None Derm: None - Past Surgical History Past Surgical History: Yes /READERS' ADVISORY SERVICE 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: section, LEEP (Cervical surgery) - Present Medications Home Medications: Ambulatory Orders Medication Instructions Recorded Confirmed Pnv No.95/Ferrous Fum/Folic AC 1 tab PO DAILY #90 tablet 08/08/20 08/13/20 [ Tablet] - Allergies Allergies/Adverse Reactions: Allergies Allergy/AdvReac Type Severity Reaction Status Date / Time azithromycin [From Zithromax] Allergy Severe Emesis Verified 12/31/20 12:08 - Social History Does the pt smoke?: Yes Smoking Status: Current every day smoker Does the pt drink ETOH?: No Does the pt have substance abuse?: Yes - Immunizations Immunizations are current?: Yes - POLST Patient has POLST: No PD ED PE NORMAL - Vitals Vital signs reviewed: Yes - General General: Alert and oriented X 3, No acute distress, Well developed/nourished - HEENT HEENT: PERRL, Moist mucous membranes - Neck Neck: Supple, no meningeal sign - Cardiac Cardiac: RRR, No murmur, Strong equal pulses - Respiratory Respiratory: No respiratory distress, Clear bilaterally - Abdomen Abdomen: Soft, Non tender, Non distended - Derm Derm: Warm and dry, No rash - Extremities Extremities: No edema, No calf tenderness / cord - Neuro Neuro: Alert and oriented X 3 - Psych Psych: Normal mood, Normal affect Results - Vitals Vitals: Vital Signs - 24 hr 12/31/20 12/31/20 11:56 14:21 Temperature 36.5 C Heart Rate 73 80 Respiratory 14 18 Rate Blood Pressure 125/77 123/71 O2 Saturation 100 100 Oxygen O2 Source Room air - EKG (time done) 1429 Rate: Rate (enter#) (75) Rhythm: NSR [place]: Normal Intervals: Normal [place] QRS: Normal Ischemia: Normal ST segments - Labs Labs: Laboratory Tests 12/31/20 12/31/20 12:21 12:21 WBC 12.1 H RBC 4.32 Hgb 9.6 L Hct 31.2 L MCV 72.2 L MCH 22.2 L MCHC 30.8 L RDW 19.5 H Plt Count 336 MPV 9.8 Neut # (Auto) 8.5 H Lymph # (Auto) 2.4 [place] # (Auto) 0.8 Eos # (Auto) 0.3 Baso # (Auto) 0.1 Absolute Nucleated RBC 0.00 Nucleated RBC % 0.0 Sodium 138 Potassium 4.2 Chloride 107 Carbon Dioxide 24 Anion Gap 7.0 BUN 19 Creatinine 0.6 Estimated GFR (MDRD) 112 Glucose 87 Calcium 8.7 Total Bilirubin 0.5 AST 14 ALT 13 Alkaline Phosphatase 84 Total Protein 7.0 Albumin 3.8 Globulin 3.2 Albumin/Globulin Ratio 1.2 Lipase 34 - Rads (name of study) chest CTA Radiology: Prelim report reviewed, EMP read contemporaneously, See rad report (No acute abnormality) PD MEDICAL DECISION MAKING - ED course Complexity details: reviewed results, re-evaluated patient, considered differential, d/w patient ED course: Patient with posterior right-sided pleuritic chest pain. Symptoms did resolve in the emergency department. No acute findings on CT. Patient is well- appearing, nontoxic. Afebrile. No significant lab abnormalities. Possible pleurisy? No evidence of ACS. We will have her follow-up with her doctor for further care. Patient counseled regarding signs and symptoms for which I believe and urgent re-evaluation would be necessary. Patient with good understanding of and agreement to plan and is comfortable going home at this time This document was made in part using voice recognition software. While efforts are made to proofread this document, sound alike and grammatical errors may occur. Departure - Departure Disposition: 01 Home, Self Care Clinical Impression: Pleurisy Condition: Good Instructions: ED Chest Pain Pleurisy Follow-Up: your,doctor in 1 week [Other] Comments: Your testing does not show any acute abnormalities today. Please follow-up with your doctor for further care. Your condition may be due to what is known as pleurisy, this can cause the chest pain that you are feeling. Usually this improves with anti-inflammatory medication such as Motrin. Return if you worsen
--- NOTE | 2020-12-31 13:54 | CT Report ---
PROCEDURE: ANGIO CHEST W/WO INDICATIONS: Right pleuritic chest pain CONTRAST: IV CONTRAST: Optiray 320 ml: 100 PO CONTRAST: *NO PO CONTRAST TECHNIQUE: After the administration of intravenous contrast, 2 mm thick sections acquired from the pulmonary api colten to the posterior costophrenic angles. 3-dimensional maximum intensity projection (MIP) coronal a nd sagittal reformats were then acquired through the thorax. For radiation dose reduction, the follow ing was used: automated exposure control, adjustment of mA and/or kV according to patient size. COMPARISON: None FINDINGS: Image quality: Excellent. Pulmonary arteries: Pulmonary arteries are normal in size, and demonstrate no intraluminal filling d efects to suggest central pulmonary embolism. Lungs and pleura: Lungs are clear. No pleural effusions or pneumothorax. Central and peripheral ai rways are patent. Mediastinum: Heart size is normal, without pericardial effusion. No mediastinal or hilar adenopathy . Thoracic aorta is normal in caliber and enhancement. Esophagus is normal in caliber, without hiat al hernia. Bones and chest wall: No suspicious bony lesions. Ribs and thoracic spine appear intact throughout. No axillary or supraclavicular adenopathy. The thyroid is normal in size and there are no incident al findings. Abdomen: Visualized upper abdominal solid organs appear normal in the early arterial phase of enhanc ement. IMPRESSION: No pulmonary malaise or other acute finding in the chest. Reviewed by: Kennedy Wray MD on 12/31/2020 1:53 PM PDT Approved by: Kennedy Wray MD on 12/31/2020 1:53 PM PDT Station ID: [id number]
[2020-12-31 14:22] VITALS: BP 123/71
== END 2020-12-31 14:45 | disposition home or self-care (01) ==
LOC: EDUNIT# → ED 11:52
DX: R09.1 Pleurisy (principal); F17.200 Nicotine dependence, unspecified, uncomplicated
CPT/HCPCS: 36415; 71275; 80053; 83690; 85025; 93005; 96374; 99283; 99284; Q9967

== ENCOUNTER 2021-02-01 16:37 | Emergency (ER) | payer MEDICAID ==
--- NOTE | 2021-02-01 19:25 | ED Physician Documentation ---
History of Present Illness - Stated complaint Stated Complaint: RT SHOULDER AREA PX - Chief complaint Chief Complaint: General - History obtained from History obtained from: Patient - Additonal information Additional information: Previously healthy 40-year-old woman has had right shoulder pain for the last week. It started after a day of lifting and was kind of in the shoulder but since then has really radiated more into the axilla and right upper chest. It is worse with which worse with both shoulder movements and deep breathing. There is no cough, hemoptysis, shortness of breath, leg swelling, calf pain, history of DVT or PE. No recent travel. She is not on control as she has had a tubal ligation. 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 : Chronic bladder infection HEENT: None Psych: None Musculoskeletal: None Derm: None - Past Surgical History Past Surgical History: Yes /CURING SUPERVISOR: section, LEEP (Cervical surgery) - Present Medications Home Medications: Ambulatory Orders Medication Instructions Recorded Confirmed Acyclovir 800 mg PO 5XD #50 tablet 02/01/21 predniSONE [Deltasone] 20 mg PO [id number] #21 tab 02/01/21 - Allergies Allergies/Adverse Reactions: Allergies Allergy/AdvReac Type Severity Reaction Status Date / Time azithromycin [From Zithromax] Allergy Severe Emesis Verified 02/01/21 16:56 - Social History Does the pt smoke?: Yes Smoking Status: Current every day smoker Does the pt drink ETOH?: No Does the pt have substance abuse?: Yes - Immunizations Immunizations are current?: Yes - POLST Patient has POLST: No PD ED PE NORMAL - Vitals Vital signs reviewed: Yes - General General: Alert and oriented X 3, No acute distress - HEENT HEENT: PERRL, EOMI - Neck Neck: Supple, no meningeal sign, No bony TTP - Cardiac Cardiac: RRR, No murmur - Respiratory Respiratory: No respiratory distress, Clear bilaterally - Abdomen Abdomen: Non tender - Extremities Extremities: Other (There is a very mild rash on the posterior right shoulder that could be consistent with an incredibly mild case of shingles, it is 3 red based vesicles. Otherwise the shoulder seems relatively nontender and has almost full range of motion albeit has pain with abduction way over the head.) - Neuro Neuro: Alert and oriented X 3, Normal speech Results - Vitals Vitals: Vital Signs - 24 hr 02/01/21 02/01/21 16:57 19:36 Temperature 36.6 C 36.6 C Heart Rate 90 83 Respiratory 16 16 Rate Blood Pressure 115/93 H 122/57 L O2 Saturation 99 100 Oxygen O2 Source Room air - EKG (time done) 1926 Rate: Rate (enter#) (80) Rhythm: NSR [place]: Normal Intervals: Normal [place] QRS: Normal Ischemia: Normal ST segments - Rads (name of study) 2v chest Radiology: EMP read contemporaneously (normal) PD MEDICAL DECISION MAKING - ED course ED course: PERC negative, could be very mild shingles, will restratify for cardiac disease with chest x-ray and EKG. 40-year-old woman presents with right upper chest wall and shoulder pain, could be musculoskeletal but her range of motion is pretty good. It can radiate into the chest. She does have 3 small spots above the right scapula that could be consistent with early shingles. Departure - Departure Disposition: 01 Home, Self Care Clinical Impression: Chest pain Condition: Good Record reviewed to determine appropriate education?: Yes Instructions: ED Chest Pain Atypical Unkn Cause Prescriptions: Acyclovir 800 mg PO 5XD #50 tablet predniSONE [Deltasone] 20 mg PO [id number] #21 tab Comments: As discussed, given those 3 small spots in your back I do wonder if this is an early case of shingles and seems reasonable to treat you with antiviral agents and steroids which is the normal treatment for that. Return for new or worsening symptoms. Follow-up with your primary care physician next week for recheck.
--- NOTE | 2021-02-01 20:35 | XRAY Report ---
PROCEDURE: Chest 2 View X-Ray INDICATIONS: chest pain TECHNIQUE: 2 view(s) of the chest. COMPARISON: Chest x-ray one view, 06/01/2020. FINDINGS: Surgical changes and devices: None. Lungs and pleura: No pleural effusions or pneumothorax. Lungs are clear. Mediastinum: Mediastinal contours are normal. Heart size is normal. Bones and chest wall: No suspicious bony abnormalities. Soft tissues appear unremarkable. IMPRESSION: No acute cardiopulmonary disease. Reviewed by: Anne Malik MD on 02/01/2021 8:34 PM PDT Approved by: Anne Malik MD on 02/01/2021 8:34 PM PDT Station ID: [id number]
[2021-02-01] MEDS ORDERED: predniSONE 20 MG TABLET PO STA (20:37)
[2021-02-01] MEDS ORDERED: ACYCLOVIR 200 MG CAPSULE PO STA (20:37)
[2021-02-01 20:48] VITALS: BP 121/60
== END 2021-02-01 20:47 | disposition home or self-care (01) ==
LOC: ED 16:37
DX: R07.89 Other chest pain (principal); M25.511 Pain in right shoulder; R21 Rash and other nonspecific skin eruption; F17.200 Nicotine dependence, unspecified, uncomplicated
CPT/HCPCS: 71046; 93005; 99283; 99284; A9270; J7512

== ENCOUNTER 2021-02-17 10:03 | Emergency (ER) | payer MEDICAID ==
[2021-02-17 10:11] VITALS: BP 143/83
--- NOTE | 2021-02-17 10:47 | ED Physician Documentation ---
History of Present Illness - Stated complaint Stated Complaint: RASH - Chief complaint Chief Complaint: General - History obtained from History obtained from: Patient - History of Present Illness Timing: How many weeks ago (2) Pain level max: 0 Pain level now: 0 - Additonal information Additional information: 40-year-old female states that she had a rash to her right shoulder a few weeks ago, was seen here, she states that now she has a rash on her abdomen, bilateral lower extremities and left arm as well. Described as itchy. No fevers. No chills. No new soaps, detergents, medications, pets. Denies any possibility of . 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 : Chronic bladder infection HEENT: None Psych: None Musculoskeletal: None Derm: None - Past Surgical History Past Surgical History: Yes /PROJECT MANAGER ENTERTAINMENT AND MEDIA: section, LEEP (Cervical surgery) - Present Medications Home Medications: Ambulatory Orders Medication Instructions Recorded Confirmed Acyclovir 800 mg PO 5XD #50 tablet 02/01/21 predniSONE [Deltasone] 20 mg PO [id number] #21 tab 02/01/21 Cetirizine [ZyrTEC] 10 mg PO DAILY PRN #30 tablet 02/17/21 predniSONE [Deltasone] 10 mg PO [id number] #42 tab 02/17/21 - Allergies Allergies/Adverse Reactions: Allergies Allergy/AdvReac Type Severity Reaction Status Date / Time azithromycin [From Zithromax] Allergy Severe Emesis Verified 02/17/21 10:11 - Social History Does the pt smoke?: Yes Smoking Status: Current every day smoker Does the pt drink ETOH?: No Does the pt have substance abuse?: Yes - Immunizations Immunizations are current?: Yes - POLST Patient has POLST: No PD ED PE NORMAL - Vitals Vital signs reviewed: Yes - General General: Alert and oriented X 3, No acute distress - HEENT HEENT: Moist mucous membranes - Neck Neck: Supple, no meningeal sign - Cardiac Cardiac: RRR - Respiratory Respiratory: No respiratory distress, Clear bilaterally - Abdomen Abdomen: Soft, Non tender, Non distended - Derm Derm: Warm and dry - Extremities Extremities: Other (Mild rash to the lower aspect of the abdomen, the bilateral shoulders. Very small pustules. No vesicles. No scabs. No scaling or crusting) - Neuro Neuro: Alert and oriented X 3 Results - Vitals Vitals: Vital Signs - 24 hr 02/17/21 10:09 Temperature 36.3 C L Heart Rate 107 H Respiratory 16 Rate Blood Pressure 143/83 H O2 Saturation 99 Oxygen O2 Source Room air PD MEDICAL DECISION MAKING - ED course Complexity details: considered differential, d/w patient ED course: Unclear etiology of the patient's symptoms. Will trial on a steroid taper and refer her to dermatology for further care. Patient is well-appearing, nontoxic. Afebrile. No evidence of anaphylaxis or respiratory involvement. Patient counseled regarding signs and symptoms for which I believe and urgent re- evaluation would be necessary. Patient with good understanding of and agreement to plan and is comfortable going home at this time This document was made in part using voice recognition software. While efforts are made to proofread this document, sound alike and grammatical errors may occur. Departure - Departure Disposition: 01 Home, Self Care Clinical Impression: Dermatitis Condition: Good Instructions: ED Dermatitis Non Specific Rash Follow-Up: [facility] [Provider Group] - Within 1 week Prescriptions: predniSONE [Deltasone] 10 mg PO [id number] #42 tab Cetirizine [ZyrTEC] 10 mg PO DAILY PRN #30 tablet PRN Reason: itching Comments: Please follow-up with dermatology for further care. Return if you worsen. The cause of your symptoms is unclear. Discharge Date/Time: 02/17/21 10:59
== END 2021-02-17 10:59 | disposition home or self-care (01) ==
LOC: ED 10:03
DX: L30.9 Dermatitis, unspecified (principal); F17.200 Nicotine dependence, unspecified, uncomplicated
CPT/HCPCS: 99282; 99284

== ENCOUNTER 2021-04-02 14:55 | Emergency (ER) | payer MEDICAID ==
--- NOTE | 2021-04-02 16:47 | ED Physician Documentation ---
History of Present Illness - Stated complaint Stated Complaint: CONGESTION/PRESSURE - Chief complaint Chief Complaint: General - History obtained from History obtained from: Patient - History of Present Illness Timing: How many days ago (2) Pain level max: 5 Pain level now: 5 - Additonal information Additional information: Patient is a 40-year-old female who presents to the emergency department with sinus congestion, mild dry cough and mild sore throat for the past 2 days. Has not had her Covid vaccination. Nothing makes it better or worse. Does not have any history of respiratory issues. No difficulty breathing. Review of Systems Constitutional: denies: Fever, Chills Nose: reports: Congestion Cardiac: denies: Chest pain / pressure Respiratory: reports: Cough. 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, LEEP (Cervical surgery) - Present Medications Home Medications: Ambulatory Orders Medication Instructions Recorded Confirmed Benzonatate [Tessalon] 200 mg PO TID PRN #30 cap 04/02/21 Cetirizine HCl/Pseudoephedrine 1 tab PO BID PRN #30 tab 04/02/21 [Allergy Rlf-Decong ER 5-120 mg] Fluticasone [Flonase] 1 sprays SELINA BID PRN #1 bottle 04/02/21 - Allergies Allergies/Adverse Reactions: Allergies Allergy/AdvReac Type Severity Reaction Status Date / Time azithromycin [From Zithromax] Allergy Severe Emesis Verified 04/02/21 15:01 - Social History Does the pt smoke?: Yes Smoking Status: Current every day smoker Does the pt drink ETOH?: No Does the pt have substance abuse?: Yes - Immunizations Immunizations are current?: Yes - POLST Patient has POLST: No PD ED PE NORMAL - Vitals Vital signs reviewed: Yes - General General: Alert and oriented X 3, No acute distress, Well developed/nourished - HEENT HEENT: PERRL, Ears normal, Moist mucous membranes, Pharynx benign - Neck Neck: Supple, no meningeal sign - Cardiac Cardiac: RRR, Strong equal pulses - Respiratory Respiratory: No respiratory distress, Clear bilaterally - Abdomen Abdomen: Soft, Non tender, Non distended - Derm Derm: Warm and dry - Neuro Neuro: Alert and oriented X 3 - Psych Psych: Normal mood, Normal affect Results - Vitals Vitals: Vital Signs - 24 hr 04/02/21 04/02/21 15:01 17:12 Temperature 37 C 36.6 C Heart Rate 110 H 92 Respiratory 18 18 Rate Blood Pressure 124/77 122/70 O2 Saturation 99 99 Oxygen O2 Source Room air PD MEDICAL DECISION MAKING - ED course Complexity details: considered differential, d/w patient ED course: Patient with what appears to be a viral upper respiratory infection. Covid testing performed. We will place on decongestants, cough medication for home. We will have her follow-up with her doctor as needed for further care. No hypoxia. No respiratory distress. No evidence of pneumonia. Patient counseled regarding signs and symptoms for which I believe and urgent re-evaluation would be necessary. Patient with good understanding of and agreement to plan and is comfortable going home at this time This document was made in part using voice recognition software. While efforts are made to proofread this document, sound alike and grammatical errors may occur. Encouraged patient to obtain her Covid vaccination Departure - Departure Disposition: 01 Home, Self Care Clinical Impression: Viral URI Condition: Good Instructions: ED Viral Syndrome Follow-Up: your,doctor in 1 week if not better [Other] Prescriptions: Cetirizine HCl/Pseudoephedrine [Allergy Rlf-Decong ER 5-120 mg] 1 tab PO BID PRN #30 tab PRN Reason: Nasal Congestion Fluticasone [Flonase] 1 sprays SELINA BID PRN #1 bottle PRN Reason: Nasal Congestion Benzonatate [Tessalon] 200 mg PO TID PRN #30 cap PRN Reason: Cough Comments: Your prescriptions were sent electronically to [facility]. Use the medications as needed at home. You have a Covid test pending. You need to self quarantine until the result is done and negative. The results should be done in 24-48 hours. We will call with a positive result, the fastest way to get a negative result for confirmation though is to go to the hospital website at [email or web address], click on the my [facility] tab and sign up for the patient portal. Discharge Date/Time: 04/02/21 17:13
[2021-04-02 17:16] VITALS: BP 122/70
== END 2021-04-02 17:13 | disposition home or self-care (01) ==
LOC: ED 14:55
DX: J06.9 Acute upper respiratory infection, unspecified (principal); B97.89 Other viral agents as the cause of diseases classified elsewhere; Z20.822 Contact with and (suspected) exposure to COVID-19; F17.200 Nicotine dependence, unspecified, uncomplicated
CPT/HCPCS: 99283

== ENCOUNTER 2021-04-27 15:57 | Emergency (ER) | payer MEDICAID ==
[2021-04-27 16:17] VITALS: BP 134/77
--- NOTE | 2021-04-27 16:30 | ED Physician Documentation ---
History of Present Illness - Stated complaint Stated Complaint: BACK PX - Chief complaint Chief Complaint: Back Pain - Additonal information Additional information: 40-year-old female presents emergency department for evaluation of acute octavio ateral low back pain that she noticed yesterday evening when she was moving heavy boxes at home. When she woke up this morning she had increased pain and is the day is gone on she has felt increasingly stiff. Has difficulty bending forward. No fevers. She states that she also started a new job where she does a lot of heavy lifting. She denies a history of low back pain but does endorse previous upper thoracic and shoulder pain. She has no saddle anesthesia no loss of bowel or bladder function. No fevers. No history of spinal instrumentation or cancer. No history of IVDA. She has not taken anything for pain at home. 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 : Chronic bladder infection HEENT: None Psych: None Musculoskeletal: None Derm: None - Past Surgical History Past Surgical History: Yes /COMBAT CONTROL MANAGER: section, Tubal ligation, LEEP (Cervical surgery) - Present Medications Home Medications: Ambulatory Orders Medication Instructions Recorded Confirmed Cyclobenzaprine [Flexeril] 10 mg PO TID PRN #20 tablet 04/27/21 Ibuprofen [Motrin] 600 mg PO Q6H PRN #30 tab 04/27/21 - Allergies Allergies/Adverse Reactions: Allergies Allergy/AdvReac Type Severity Reaction Status Date / Time azithromycin [From Zithromax] Allergy Severe Emesis Verified 04/27/21 16:17 - Social History Does the pt smoke?: Yes Smoking Status: Current every day smoker Does the pt drink ETOH?: No Does the pt have substance abuse?: Yes Substance Use and Type: Marijuana - Immunizations Immunizations are current?: Yes - POLST Patient has POLST: No PD ED PE EXPANDED - General General: Alert, In Pain - Cardiac Cardiac: Regular Rate, Femoral strong equal, Cap refill < 2 sec - Respiratory Respiratory: Clear to ausultation octavio. No: Distress, Labored - Abdomen Abdomen: Normal Bowel sounds. No: Tender to palpation - Back Back: Soft tissue tenderness (Across the lower bilateral paraspinous muscles. She does have full forward range of motion though it is tender. Normal gait though mildly antalgic. Able to walk on balls of feet and heels of toes. 2+ PT pulses. No paresthesias. Motor strength 5 of 5 bilateral lower extremities.Tender). No: Vertebral tenderness - Derm Derm: Normal color, Warm and dry. No: Rash - Neuro Neuro: Alert and Oriented X 3, Normal gait, Normal speech - GCS Eye Opening: Spontaneous Motor: Obeys Commands Verbal: Oriented Total: 15 Results - Vitals Vitals: Vital Signs - 24 hr 04/27/21 16:14 Temperature 37.1 C Heart Rate 110 H Respiratory 20 Rate Blood Pressure 134/77 H O2 Saturation 99 Oxygen O2 Source Room air PD MEDICAL DECISION MAKING - ED course Complexity details: considered differential, d/w patient ED course: 32-year-old female presents emergency department for evaluation of lower lumbar spine that she noticed last night but has gotten progressively worse over the last 24 hours. No red flags on exam. No fevers. History and exam is not consistent with an epidural abscess. She does have a reasonably reassuring exam and gait. Given Toradol in the ED. Will be discharged with prescription for NSAID as well as muscle relaxer. Gentle stretching discussed. Emergent return precautions were discussed Departure - Departure Disposition: 01 Home, Self Care Clinical Impression: Low back pain Qualifiers: Chronicity: acute Back pain laterality: bilateral Sciatica presence: without sciatica Qualified Code(s): M54.50 - Low back pain, unspecified Condition: Stable Record reviewed to determine appropriate education?: Yes Instructions: ED Spasm Back No Trauma Prescriptions: Cyclobenzaprine [Flexeril] 10 mg PO TID PRN #20 tablet PRN Reason: Spasms Ibuprofen [Motrin] 600 mg PO Q6H PRN #30 tab PRN Reason: Pain Comments: Eve you appear to have some fairly significant spasm in your lower back. This can be very uncomfortable. Is very important that you continue to walk and be as mobile as possible. Over the next 2 to 3 days I do recommend that you ice your back for 10 minutes 3 times a day. Would like you to take ibuprofen with food as prescribed. Do gentle stretching to help relax the muscles. I have also prescribed Flexeril as a muscle relaxer. Use this cautiously it may make you sleepy and unsafe to drive. If you develop fevers, lose control of your bowel or bladder function, have numbness or tingling in your legs then please return immediately to the ER for a second evaluation. I do encourage you to follow-up closely with your primary care doctor.
[2021-04-27] MEDS: HYDROmorphone 1 MG/ML CARPUJECT IM STA ×2 (16:32→16:33)
[2021-04-27] MEDS ORDERED: KETOROLAC 60 MG/2 ML VIAL IM STA (16:37)
== END 2021-04-27 17:00 | disposition home or self-care (01) ==
LOC: ED 15:57
DX: M54.50 Low back pain, unspecified (principal); M62.830 Muscle spasm of back; F17.200 Nicotine dependence, unspecified, uncomplicated
CPT/HCPCS: 96372; 99283; 99284

== ENCOUNTER 2024-04-20 17:02 | Emergency (ER) | payer MEDICAID, OTHER ==
[2024-04-20 17:14] VITALS: BP 140/80; O2SAT 100
--- NOTE | 2024-04-20 17:17 | ED Physician Documentation ---
PD HPI WOUND RECHECK - Stated complaint Stated Complaint: ARMPIT PX - Chief complaint Chief Complaint: Wound - Histroy obtained from History obtained from: Patient (She has a couple painful lumps in each armpit for the last 2 to 3 days. 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: section, Tubal ligation, LEEP (Cervical surgery) - Present Medications Home Medications: Ambulatory Orders Medication Instructions Recorded Confirmed Cyclobenzaprine [Flexeril] 10 mg PO TID PRN #20 tablet 04/27/21 Ibuprofen [Motrin] 600 mg PO Q6H PRN #30 tab 04/27/21 Doxycycline [Vibramycin] 100 mg PO BID #20 tablet 04/20/24 - Allergies Allergies/Adverse Reactions: Allergies Allergy/AdvReac Type Severity Reaction Status Date / Time azithromycin [From Zithromax] Allergy Severe Emesis Verified 04/20/24 17:08 - Social History Does the pt smoke?: Yes Smoking Status: Current every day smoker Does the pt drink ETOH?: No Does the pt have substance abuse?: Yes - Immunizations Immunizations are current?: Yes - POLST Patient has POLST: No PD ED PE NORMAL - Vitals Vital signs reviewed: Yes - General General: Alert and oriented X 3, No acute distress - Extremities Extremities: Other (She has folliculitis in the left greater than right axilla. 2 smaller lesions in the left axilla would merit drainage. Not much cellulitis.) - Neuro Neuro: Alert and oriented X 3, Normal speech Eye Opening: Spontaneous Motor: Obeys Commands Verbal: Oriented GCS Score: 15 - Psych Psych: Normal mood, Normal affect Results - Vitals Vitals: Vital Signs - 24 hr 04/20/24 17:08 Temperature 36.5 C Heart Rate 90 Respiratory 16 Rate Blood Pressure 140/80 H O2 Saturation 100 Oxygen O2 Source Room air Procedures - Abscess I&D (location) L axilla Preparation: Alcohol, Lidocaine 1% Incision: Needle aspiration, Purulent drainage, Culture obtained Departure - Departure Disposition: 01 Home, Self Care Clinical Impression: Folliculitis Condition: Good Record reviewed to determine appropriate education?: Yes Instructions: ED Folliculitis Prescriptions: Doxycycline [Vibramycin] 100 mg PO BID #20 tablet Comments: I sent your prescription electronically to the [facility] in [place]. For wound care you can wash with soap and water and then you may just need to use a Band-Aid. We are performing a wound culture, the results should be done in 48- 72 hours. If antibiotic change is necessary we will call you. Return if worse in the meantime, especially if you develop increased pain, fevers, cannot keep down the medication. Otherwise follow-up with your physician in approximately 2-3 days.
== END 2024-04-20 17:33 | disposition home or self-care (01) ==
LOC: ED 17:02
DX: L73.8 Other specified follicular disorders (principal); F17.200 Nicotine dependence, unspecified, uncomplicated
CPT/HCPCS: 10160; 87070; 87181; 87205